=== PATIENT | male | born 1945 | race Caucasian/White ===

== ENCOUNTER → 2018-09-30 11:01 | Outpatient (CLI) | payer MEDICARE, OTHER, SELFPAY ==
--- NOTE | 2018-09-30 | DI.MRI.S_ITS ---
PROCEDURE: MR KNEE RT WO CON INDICATIONS: KNEE REPLACEMENT PLANNING TECHNIQUE: Noncontrast sagittal PD fast spin echo and T2 fast spin echo with fat saturation, sagittal 3-D FLASH with fat saturation; coronal T1 spin echo and PD fast spin echo with fat saturation, and axial PD fast spin echo with fat saturation through the knee. COMPARISON: [facility], MR, KNEE WITHOUT CONTRAST, 07/19/2014, 14:25. FINDINGS: Image quality: Excellent. Menisci: Linear high signal intensity horizontally to reverse the medial meniscal body and posterior horn, demonstrating inferior articular surface extension, indicating horizontal tearing. There is lateral extrusion of the lateral meniscus. There is fragmentation and amorphous high signal intensity within the anterior horn, body, and posterior horn of lateral meniscus, demonstrating superior and inferior articular surface extension, indicating severe degenerative tearing. Cruciate ligaments: The anterior and posterior cruciate ligaments appear intact. Medial structures: The medial collateral ligament appears intact. Visualized portions of the pes anserinus tendons appear normal. No abnormal bursal fluid. Lateral structures: The lateral collateral ligament, long and short heads of the biceps femoris tendon appear intact. The popliteus tendon appears normal. Iliotibial band appears normal. Anterior structures: The quadriceps and patellar tendons appear intact. Patellar alignment is normal. No femoral trochlear dysplasia or ventral trochlear prominence. No edema in the infrapatellar fat pad. Bones and cartilage: No bone marrow contusions or fractures there is moderate tricompartmental periarticular osteophyte formation. Moderate diffuse articular cartilage loss overlies the weightbearing aspects of the medial femoral condyle and medial tibial plateau. Severe articular cartilage loss overlies the mid and posterior weightbearing aspects of the lateral femoral condyle and lateral tibial plateau. Moderate articular cartilage loss overlies the lateral patellar apex. Joint space: There is a small knee joint effusion. There is a small ganglion cyst along the popliteus. Multiple small intra-articular loose bodies are present. No Tejada's cyst. Normal appearing synovial plicae are incidentally noted. IMPRESSION: 1. Medial and lateral meniscal tearing. 2. Tricompartmental osteoarthritis with associated articular cartilage loss. 3. Knee joint effusion and intra-articular loose bodies. Dictated by: Ezequiel Langston M.D. on 09/30/2018 at 13:16 Approved by: Ezequiel Langston M.D. on 09/30/2018 at 13:19
== END ==
PROVIDERS: PCP Family Medicine; Visit Provider Orthopaedic Surgery
DX: Z01.818 Encounter for other preprocedural examination (principal); M23.221 Derangement of posterior horn of medial meniscus due to old tear or injury, right knee; M23.241 Derangement of anterior horn of lateral meniscus due to old tear or injury, right knee; M23.251 Derangement of posterior horn of lateral meniscus due to old tear or injury, right knee; M23.261 Derangement of other lateral meniscus due to old tear or injury, right knee; M17.11 Unilateral primary osteoarthritis, right knee; M25.461 Effusion, right knee; M23.41 Loose body in knee, right knee
CPT/HCPCS: 73721

== ENCOUNTER → 2018-11-22 09:46 | Outpatient (CLI) | payer MEDICARE, OTHER, SELFPAY ==
[2018-11-22 10:31] LABS: Add Manual Diff / Slide Review NO; Basophils Absolute Auto 0 /uL (0-100); Basophils Percent Auto 0.3 % (0-2); Eosinophils Absolute Auto 400 /uL (0-450); Hemoglobin 11.7 g/dL (13.5-17.5); Lymphocytes Absolute Auto 1700 /uL (1100-4500); Lymphocytes Percent Auto 23.4 % (25-40); Mean Corpuscular HGB Conc 32.6 % (30-36); Mean Corpuscular Hemoglobin 28.5 PG (26-34); Mean Corpuscular Volume 87.2 fL (80-100); Monocytes Absolute Auto 600 /uL (0-900); Monocytes Percent Auto 7.8 % (3-14); Neutrophils Absolute Auto 4600 /uL (1500-7000); Neutrophils Percent Auto 63.5 % (50-75); Platelet Count 225 X10^3/uL (150-400); Red Blood Cell Count 4.13 X10^6/uL (4.5-5.9); Red Cell Distribution Width 15.5 % (11.6-14.8); White Blood Cell Count 7.2 X10^3/uL (4.5-11.0)
[2018-11-22 10:58] LABS: Carbon Dioxide 27 mmol/L (22-32); Chloride 103 mmol/L (98-107); HEMOLYSIS < 15 (0-50); Potassium 5.1 mmol/L (3.4-5.1); Sodium 139 mmol/L (137-145)
== END ==
PROVIDERS: PCP Family Medicine; Visit Provider Orthopaedic Surgery
DX: Z01.812 Encounter for preprocedural laboratory examination (principal)
CPT/HCPCS: 36415; 80051; 85025; 93005

== ENCOUNTER 2018-11-30 10:00 | Inpatient (IN) | payer MEDICARE, OTHER, SELFPAY ==
[2018-11-28 12:43] VITALS: BMI 38.1
[2018-11-30] VITALS (15 sets, daily range): BP systolic 90–178; BP diastolic 49–92; PULSE 57–80; RESP 12–20; TEMP 36.3–37; O2SAT 91–100; BMI 38.1
--- NOTE | 2018-11-30 06:00 | DI.RAD.S_ITS ---
PROCEDURE: XR KNEE RT 1TO2V INDICATIONS: post op TECHNIQUE: 2 view(s) of the knee acquired. COMPARISON: [facility], , KNEE 1-2 VIEWS LEFT, 09/12/2014, 13:14. FINDINGS: Bones: Patient is status post knee joint arthroplasty. Hardware components are in expected positions. Visualized bony structures are intact. Soft tissues: Overlying postoperative changes are noted. IMPRESSION: Normal alignment after right total knee arthroplasty. Dictated by: Edward Dye M.D. on 11/30/2018 at 15:17 Approved by: Edward Dye M.D. on 11/30/2018 at 15:17
[2018-11-30] MEDS: ACETAMINOPHEN 325 MG TABLET 975 MG PO ×3 (10:43→20:21)
[2018-11-30] MEDS: CELECOXIB 200 MG CAPSULE PO (10:43)
[2018-11-30] MEDS: PREGABALIN 75 MG CAPSULE PO (10:44)
[2018-11-30] MEDS: LACTATED RINGERS 1,000 ML 42 ML IV (10:57)
--- NOTE | 2018-11-30 11:40 | PM.PREOP ---
Pre-operative Note Interval Note History & Physical reviewed/Exam performed by Physician: Yes Changes to H&P: No
--- NOTE | 2018-11-30 11:40 | PM.OP.1 ---
Operative Date/Time/Diagnoses Date of procedure: 11/30/18 Time of procedure: 13:49 Pre-op diagnosis: Right knee osteoarthritis Post-op diagnosis: same Procedure & Clinicians Procedure: right total knee arthroplasty Same procedure as scheduled: Yes Indications: The patient presents today for [surgery]. The nature of the procedure including the risks and benefits, alternatives, postoperative course and expected outcome were discussed and all questions answered. Consent was obtained. Operative site confirmed and marked. Surgeon: Emigdio Rogers Global Regulatory Affairs Manager: Donte Haynes Anesthesia Type: General, Peripheral nerve block and Local Operative Notes Findings: Severe knee arthritis with valgus alignment. Closure Type: primary Specimen(s): none sent Prosthetic devices, grafts, tissues, transplants, or devices: Adams [employer]ph[employer] Snacks Maxine BCS: 7 femoral component, 7 tibial component, 9 mm BCS polyethylene tray and 35 x 9 mm round patella Applied: implant(s) Estimated Blood Loss (mL): 25 Blood products transfused: none Tourniquet time (min): 20 Procedure in detail: The patient was taken to the operative suite and placed under general anesthesia and given an adductor nerve block. The patient was given prophylactic antibiotics prior to surgery. The patient was also given tranexamic acid, 1 g, just prior to surgery for postoperative hemostasis. The lateral knee was prepped and the joint injected with 20 mL of 1% Lidocaine with epinephrine. The knee was then prepped and draped in usual sterile fashion. The leg was exsanguinated with an Esmarch dressing and the tourniquet raised to 250 torr. A 15 cm anterior incision was made. Next a medial trivector arthrotomy was made. The extensor mechanism was marked to ensure accurate repair. Initial exposing dissection was carried out medially and laterally. The knee was then extended and the patellar thickness was measured and a cut made removing approximately 9 mm of bone with a goal of restoring normal patellar thickness. The patella was then sized and drilled. Some excess lateral bone was excised and the patellofemoral ligament released. The tourniquet was then released. The knee was then flexed and the [employer] femoral guide was placed. The anterior pins were placed and the distal rotation holes drilled. The distal cutting guide was placed and the templated distal femoral cut was made. The templating cutting block was then placed and the anterior, posterior and chamfer cuts made. The [employer] tibial guide was placed and the alignment checked along the axis of the proximal tibial with a thanh. The proximal tibial cut was then made with an oscillating saw. All meniscus and bony debris was then removed. Flexion extension gaps were checked. The knee was initially tight in both flexion and extension but fairly well-balanced. Another 2 mm was cut from the tibia. No specific balancing was required other than routine exposure and removal of osteophytes. The soft tissues were then injected with a combination of 20 mL of half percent Marcaine with epinephrine and 20 mL of Exparel. The trial components were then placed. The knee went into full extension and flexion beyond 120?. There was excellent medial- lateral balance throughout motion. Patellar tracking was excellent. The trial components were removed and size is confirmed for the final implants. The knee was then exsanguinated with an Esmarch dressing and the tourniquet reapplied for cementing. The knee was cleansed with Pulsavac irrigation and dried. The final components were cemented in with high viscosity vacuum mixed bone cement with antibiotics. The knee was held in extension and the patellar clamp until the cement had adequately cured. The knee was then irrigated with dilute Betadine solution. The extensor mechanism was closed with 5 interrupted #1 Vicryl sutures in 90 degrees of flexion. The joint was then injected with a combination of 1 g of tranexamic acid and 20 mL of quarter percent Marcaine with epinephrine. The subcutaneous tissue was closed with 2-0 Vicryl. The skin was closed with nayan and surgical adhesive. An Aquacel dressing and Roberto wrap were then applied. Complications: none Condition: stable Disposition: PACU Plan for aftercare: Critical access hospital protocol for total knee arthroplasty.
[2018-11-30] MEDS: MIDAZOLAM 2 MG/2 ML VIAL IV (12:08)
[2018-11-30] MEDS: CEFAZOLIN 2 GM/100 ML FROZ.PIGGY IV ×2 (12:20→20:21)
--- NOTE | 2018-11-30 12:21 | SUR.PREOP ---
Block start time [1210 . Monitoring initiated and maintained throughout procedure. Oxygen and medications given per anesthesiologist instructions. Patient remained stable throughout procedure, no adverse reactions noted. Block end time [1214 ].
--- NOTE | 2018-11-30 12:54 | SUR.OPER ---
Supine on padded OR bed. Pillow under head, arms secured on padded armboards <90 degree abduction. Safety belt across torso. Non-operative leg secured with tape over blanket over lower leg. Operative leg secured in DeMayo/Jason positioner. Foam padded brace at thigh of operative leg.
[2018-11-30] MEDS: BUPIVACAINE 0.25% W/ EPI 50 ML VIAL 60 ML INJ (13:00)
[2018-11-30] MEDS: BUPIVACAINE LIPOSOME 266 MG/20 ML VIAL INJ (13:01)
[2018-11-30] MEDS: LIDOCAINE 1% W/EPI INJ 20 ML INJ (13:02)
[2018-11-30] MEDS: POVIDONE-IODINE 15 ML, SODIUM CHLORIDE 0.9% 250 ML TOP (13:04)
[2018-11-30] MEDS: TRANEXAMIC ACID 1,000 MG VIAL 1000 MG INJ (13:05)
[2018-11-30] MEDS: LACTATED RINGERS 1,000 ML 125 ML IV (15:53)
--- NOTE | 2018-11-30 16:05 | PT.IPTN ---
Current Diagnoses Obstructive sleep apnea (adult) (pediatric) (11/30/18) Unspecified internal derangement of right knee (11/30/18) Dependence on other enabling machines and devices (11/30/18) Surgery Performed Operation Date: 11/30/18 12:15 Actual Procedures p Total Knee Arthroplasty(Right) - Emigdio Rogers MD Physical Therapy Treatment Note M3 PT-IP Subjective Start: 11/30/18 16:55 Freq: NEEDED Status: Active Protocol: Document 11/30/18 16:05 RCC (Rec: 11/30/18 16:56 RCC [id number]) Subjective Physical Therapy Visit Type Type Patient Refusal Notes Pt refused PT this afternoon, stating I have only been in the room for 30 minutes, I would like to wait until I have had some pain medication. Discussed with pt that pain medication time to take effect would likely be too late to be seen by PT, and discussed importance of early mobility. Pt still declined at this time . Will attempt evaluation again tomorrow
[2018-11-30] MEDS: WARFARIN 5 MG TABLET PO (17:39)
[2018-11-30] MEDS: OXYCODONE IR 5 MG TABLET PO ×2 (17:47→21:29)
[2018-11-30] MEDS: ASPIRIN EC 81 MG TABLET PO (20:22)
[2018-11-30] MEDS: ATORVASTATIN 20 MG TABLET 40 MG PO (20:22)
[2018-11-30] MEDS: CARVEDILOL 12.5 MG TABLET 37.5 MG PO (20:23)
[2018-11-30] MEDS: cloNIDine 0.1 MG TABLET PO (20:25)
[2018-11-30] MEDS: INSULIN NPH/REG 70-30 100 UNIT/ML 3ML VIAL 22 UNIT SUBCUT (20:26)
[2018-12-01] MEDS: OXYCODONE IR 5 MG TABLET PO ×5 (00:34→21:57)
[2018-12-01] MEDS: LACTATED RINGERS 1,000 ML 125 ML IV (00:35)
[2018-12-01] MEDS: CEFAZOLIN 2 GM/100 ML FROZ.PIGGY IV (03:58)
[2018-12-01 05:00] VITALS: BP 133/68; PULSE 69; RESP 16; TEMP 36.4; O2SAT 97
--- NOTE | 2018-12-01 06:27 | PC.NURSE ---
Assumed care of pt 11/30/18 2300. Pt resting in bed during bedside hand-off. Drsg with raul wrap c/d/i. CMS+. Able to wiggle toes, denies numbness. PO oxycodone effective. IVF to PIV. Pt has not been oob yet. Refuses offer to reposition, states I never change positions at night. Using urinal to void. Using I.S. 10x/hr while awake. Bed alarm on. Calling appropriately for needs.
[2018-12-01 06:32] LABS: Hematocrit 32.1 % (41-53); Hemoglobin 10.7 g/dL (13.5-17.5)
[2018-12-01 07:45] VITALS: BP 148/79; PULSE 71; RESP 18; TEMP 36.6; O2SAT 99
[2018-12-01] MEDS: INSULIN NPH/REG 70-30 100 UNIT/ML 3ML VIAL 22 UNIT SUBCUT ×2 (09:10→20:18)
[2018-12-01] MEDS: CARVEDILOL 12.5 MG TABLET 37.5 MG PO ×2 (09:18→20:21)
[2018-12-01] MEDS: SPIRONOLACTONE 25 MG TABLET PO (09:18)
[2018-12-01] MEDS: ACETAMINOPHEN 325 MG TABLET 975 MG PO ×3 (09:18→20:22)
[2018-12-01] MEDS: ASPIRIN EC 81 MG TABLET PO ×2 (09:18→20:22)
[2018-12-01] MEDS: TERAZOSIN 5 MG CAPSULE PO (09:18)
[2018-12-01] MEDS: LOSARTAN 50 MG TABLET 100 MG PO (09:18)
[2018-12-01] MEDS: MELOXICAM 7.5 MG TABLET 15 MG PO (09:18)
[2018-12-01] MEDS: cloNIDine 0.1 MG TABLET PO ×2 (09:19→20:22)
--- NOTE | 2018-12-01 09:47 | PT.IIE ---
Current Diagnoses Obstructive sleep apnea (adult) (pediatric) (11/30/18) Unspecified internal derangement of right knee (11/30/18) Dependence on other enabling machines and devices (11/30/18) Surgery Performed Operation Date: 11/30/18 12:15 Actual Procedures p Total Knee Arthroplasty(Right) - Emigdio Rogers MD Surgical History (Last Reviewed 12/01/18 @ 08:16 by Aurora Salmon, PT) History of arthroplasty of left knee (Acute ~2014) History of carpal tunnel release of both wrists (Acute ~2004) History of hemiarthroplasty of left shoulder (Acute ~2004) Hx of arthroscopy of left knee (Acute ~2008) Hx of cholecystectomy (Acute) Hx of laminectomy (Acute) Hx of shoulder surgery (Acute ~2007) S/P foot surgery, left (Acute) Medical History (Last Reviewed 12/01/18 @ 08:14 by Aurora Salmon, PT) Arthritis (Acute) Asthma (Acute) BPH w urinary obs/LUTS (Acute) Benign tumor of adrenal gland (Acute) Bilateral lower extremity edema (Acute) CKD (chronic kidney disease), stage III (Acute) COPD (chronic obstructive pulmonary disease) (Acute) Chronic pain (Acute) HTN (hypertension) (Acute) Heart murmur (Acute) Hyperlipidemia (Acute) Lymphadenopathy (Acute) Myocardial infarction (Acute) Non-sustained ventricular tachycardia (Acute) ALDAIR on CPAP (Acute) Osteoarthritis (Acute) Paroxysmal A-fib (Acute) Pneumonia (Acute) RBBB (right bundle branch block) (Acute) Renal artery stenosis (Acute) Renal calculus (Acute) Status post placement of implantable loop recorder (Acute ~11/2016) Type 2 diabetes mellitus (Acute) Physical Therapy Inpatient Evaluation/Re-Eval M1 PT/OT-IP Prior Functional Status Start: 11/30/18 16:55 Freq: NEEDED Status: Active Protocol: Document 12/01/18 09:47 DLM (Rec: 12/01/18 11:10 DLM [id number]) Medical Review Prior Functional Status Medical History Reviewed Yes Diet/Fluid Consistency Regular Communication WNL Mobility and Gait Independent, uses cane most of the time, has FWW that he uses as needed, Hard to get FWW down his halls and through some doorways Activities of Daily Living and IADL's Independent Prior Functional Level (Other details) he went to SNF rehab at [facility] after left TKA Social History Household Members significant other Living Arrangements House Number of Floors (Floors) One Floor Number of Stairs To Enter/Railing? 1, no rail, can use FWW Home Environment High Toilet Home Equipment Front Wheel Walker Straight Cane Shower Seat with Backrest Employment Status Retired Additional Social History Comment lives with his Ex- M2 PT-IP Current Condition Start: 11/30/18 16:55 Freq: NEEDED Status: Active Protocol: Document 12/01/18 09:47 DLM (Rec: 12/01/18 11:10 DL [id number]) Physical Therapy Current Condition Current Condition Evaluation Date 12/01/18 Treatment Diagnosis right TKA, impaired gait Onset Date 11/30/18 Weight Bearing Status Weight Bearing Status Weight Bear as Tolerated M3 PT-IP Subjective Start: 11/30/18 16:55 Freq: NEEDED Status: Active Protocol: Document 12/01/18 09:47 DLM (Rec: 12/01/18 11:10 DL [id number]) Subjective Physical Therapy Visit Type Type Initial Evaluation Visit Start Time 09:15 Visit Stop Time 09:47 Total Visit Minutes 32 Number of MILK WAGON DRIVER Visits 0 Physical Therapy Visit Comments Patient Comments he is not sure if he will be ready to go home at discharge or if he will need SNF rehab before going home Patient Goals get stronger Therapy Pain Assessment Pain When Pain Assessed During Mobility Pain Present Pain Present Pain Reported Location Right Knee Intensity 5 Scale Used Numeric (1 - 10) Description Aching Pain Behaviors Guarding Pain Management Techniques Apply Cold Elevation M4 PT-IP Mobility and Gait Start: 11/30/18 16:55 Freq: NEEDED Status: Active Protocol: Document 12/01/18 09:47 DLM (Rec: 12/01/18 11:10 DL [id number]) PT-Bed Mobility Assessment Supine to Sit Supine to Sit Minimal Assistance Scooting Scooting to Edge of Bed Independent PT-Transfer Assessment Sit to and From Stand Sit to and from Stand Minimal Assistance Use of Upper Extremities Equipment Transfer Assistive Device Gait Belt Front Wheeled Walker Transfers Transfer Destination Chair Transfer Technique Stand Step Pivot Transfer Ability Level of Assist Contact Guard Assistance Use of Upper Extremities Gait Assessment Gait Gait Assistance Required: Contact Guard Assist Distance (Feet) 2 Assistive Devices Assistive Device Gait Belt Front Wheeled Walker Gait Deviations General Gait Pattern Antalgic Factors Limiting Gait Function Factors Limiting Gait Function Decreased Activity Tolerance Decreased Strength Limited Range of Motion Pain PT-Balance Assessment Sitting Balance and Reactions Static Sitting Balance Ability Normal Dynamic Sitting Balance Ability Normal Standing Balance and Reactions Static Standing Balance Ability Fair Dynamic Standing Balance Ability Fair Device Used FWW M5 PT-IP Objective Assessments Start: 11/30/18 16:55 Freq: NEEDED Status: Active Protocol: Document 12/01/18 09:47 DLM (Rec: 12/01/18 11:10 DLM [id number]) Orientation Orientation/Cognition Level of Alertness Alert Orientation Name Age Birthday Month Date Year Day of Week Place Situation Language Function Ability No Deficits Noted Safety Awareness Understands Safety Issues Memory Description No Deficits Noted Gross Range of Motion Upper Extremity ROM Assessment Within Functional Limits Lower Extremity ROM Assessment Right Impaired Impairments knee ROM 25-80 degrees Strength Upper Extremity Strength Assessment Within Functional Limits Lower Extremity Strength Assessment Right Impaired Hip needs assist to lift LE off bed Knee knee ext 2+/5 Ankle DF 4/5 Coordination Assessment Gross Coordination Gross Coordination WNL Sensation Assessment Comments Sensation Comments no numbness reported, edema present in knee and distal LE Muscle Tone Muscle Tone WNL Yes M6 PT-IP Treatment Start: 11/30/18 16:55 Freq: NEEDED Status: Active Protocol: Document 12/01/18 09:47 DLM (Rec: 12/01/18 11:10 DLM [id number]) Physical Therapy Treatment Exercises Exercises Ankle Pumps Seated Knee Flexion/Extension Education Education Provided Weight Bearing Status Post-Op Packet Safety Equipment Issued Equipment Type and Company pt has his FWW from home in his room M7 PT-IP Assessment and Plan Start: 11/30/18 16:55 Freq: NEEDED Status: Active Protocol: Document 12/01/18 09:47 DLM (Rec: 12/01/18 11:10 DL [id number]) PT Summary Assessment and Plan Potential Rehabilitation Potential Good Status of Condition at Evaluation Evolving Summary Impairments Pain ROM Strength Balance Bed Mobility Transfers Gait Activity Tolerance Assessment Summary Patient alert and tolerated therapy well this visit. He c/ o pain that limits his activity tolerance today. He demonstrates safe use of the FWW. Pt up to recliner this visit. Pt reports living in a home with narrow hallways and doorways that complicate use of the fWW at home. He attended SNF rehab after his left TKA. If he continues to progress well he will be able to discharge home. If he progresses slowly he could benefit from SNF rehab before returning home. Goals Bed Mobility Goal Independent Transfer Goal Independent Front Wheeled Walker Gait Goal Independent Front Wheel Walker Gait Distance 100 feet Other Goals Up and down one step with FWW and SBA. Days to Meet Goals 3 Frequency of Treatment Frequency Of Treatment Twice a Day Treatment Plan Physical Therapy Treatment Plan Bed Mobility Training Transfer Training Gait Training Therapeutic Exercise Balance Retraining Post Op Education Discharge Planning Hot or Cold Pack Recommendations To Nursing Amount of Assist Needed 1 Person Assist Discharge Recommendations PT Discharge Recommendations Home with Assistance SNF Rehab Other Discharge Recommendations continue to assess for discharge home with Ex- to assist vs SNF rehab
[2018-12-01] MEDS: OXYCODONE IR 10 MG TABLET PO (09:59)
[2018-12-01 12:03] VITALS: BP 134/61; PULSE 67; RESP 20; TEMP 36.7; O2SAT 95
--- NOTE | 2018-12-01 12:22 | PM.PNPO.1 ---
Subjective Date Patient Seen: 12/01/18 Time Patient Seen: 12:22 Interval history: Patient is a 73 year old male who is POD#1 s/p right total knee arthroplasty. He had some difficulty with pain control overnight and states his pain levels was peaking at a 7/10. He has been slow to advance his activity and was only able to walk from bed to chair with physical therapy and has been up to the bathroom minimally. He denies any issues with urination, nausea, vomiting, chest pain, shortness of breath or calf pain. Exam Vital Signs (past 8 hours): - 12/01/18 05:00 12/01/18 07:45 12/01/18 12:03 Temperature 97.6 F 97.8 F 98.0 F Pulse Rate 69 71 67 Respiratory Rate 16 18 20 Blood Pressure 133/68 148/79 H 134/61 Pulse Oximetry 97 99 95 Oxygen Delivery Method Room Air Narrative Exam Narrative: Pleasant 73 yo M resting comfortably in bed in no apparent distress. Extrem Other: Dressing in place over right knee is CDI. Minimal swelling to the knee with no warmth or erythema. 2+ DP pulse. Intact sensation throughout distal lower extremity. Freely dorsiflexs and plantar flexes the foot and toes. Objective Labs Result Diagrams: 12/01/18 06:03 Labs: Laboratory Results - last 24 hr 12/01/18 06:03 Hgb 10.7 L Hct 32.1 L Assessment & Plan Post-op Postoperative Procedures Operation Date: 11/30/18 12:15 Actual Procedures Side Surgeon p Total Knee Arthroplasty Right Emigdio Rogers MD Postoperative day: 1 Postoperative plan narrative: 73 yo M with past medical history including diabetes, coronary artery disease, history of multiple myocardial infarctions, right bundle branch block, obesity and sleep apnea who is slowly progressing his activity. Due to his significant past medical history and his current progress with physical therapy I believe it is necessary for him to have an inpatient stay. Continue his current pain regimen with the addition of Oxycodone 10mg for severe pain. Continue to advance activity with physical therapy as able. Time Spent With Patient less than 15 minutes Quality VTE Deep Vein Thrombosis/Pulmonary Embolism Present on Admission: No
[2018-12-01 15:35] VITALS: BP 116/52; PULSE 68; RESP 16; TEMP 37; O2SAT 93
--- NOTE | 2018-12-01 15:50 | CM.DANOTE ---
Discharge Planning/Care Management DCP: assessment: Case received, EMR reviewed and met with pt. Introduced self and role. Pt is a 73 year old male who admitted yesterday for a planned R TKA. Payer: Medicare and [facility] Surgeon: Dr. Rogers. INPT admission status: confirmed by UR CLAUDINE Elaine PT eval was done today. Pt confirms that he did d/c to [facility] for rehab after L TKA: 5 years ago. He is hopeful that he can go home this time but will consider snf if must. He plans for assist from his ex- Candida, with whom he lives and his 43 year old son Preston who will be living at the house with them for a month. He notes Preston is big and strong. P: will check in again tomorrow after pt has more therapy sessions and follow: home with assist vs snf stay: to be determined. CM Discharge Assessment Start: 12/01/18 15:49 Freq: Status: Active Protocol: Document 12/01/18 15:49 ITV (Rec: 12/01/18 15:50 ITV [email or web address]) Discharge Planning Assessment Advance Directives? No: Declines further information Advance Directives on File No History Provided By Patient Medical Record Prior Living Arrangements House Household Members significant other Comment ex Candida Is patient alert and oriented? Yes Whiteboard Updated in Patient Room with Yes name and ext. # of Feeder Associate Review Status In Process Next Review Type Continued Stay Review Pre-Anesthesia Assessment Start: 11/28/18 12:43 Freq: Status: Complete Protocol: Document 11/28/18 12:43 CAB (Rec: 11/28/18 13:34 CAB [id number]) Pre-Anesthesia Assessment Patient Information Reviewed Via Phone Assessment Assessment Completed With Patient Diagnostic Results BMP/CMP CBC EKG Primary Care Provider Guillermo Ramirez Medical Clearance Received Yes Seen Specialist in Last 12 Months Yes Specialist Seen Automotive Fleet Supervisor Orthopedist Comment PCP clearance scanned to record Primary Language [place] Donkey Ride Operator Required No Height 185.42 cm Weight 131.088 kg Body Mass Index (BMI) 38.1 Hearing Ability Normal Visual Assist Glasses Dentition Type Teeth, Natural Present Barriers to Learning None Other Aids No Hx Anesthesia Reactions Yes: Post-op Nausea/Vomiting Hx Family Anesthesia Reaction No Hx Malignant Hyperthermia No Hx Blood Transfusions Yes: 1971 Hx Blood Transfusion Reaction No Anesthesia Review Requested No 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 No Does patient have WEBER/SOB Yes: Hx COPD, Asthma Hx Sleep Apnea Yes CPAP/BIPAP use prescribed and used routinely Will Bring CPAP/BIPAP DOS Yes Currently Taking a Beta Ashly Yes Can You Climb a Flight of Stairs Without No: Hx COPD, Asthma SOB Hx Chest Pain Yes: r/t myocardial infarction , none since Hx SOB Hx COPD, Asthma Hx Syncope or Dizziness Yes: Syncope history, resolved w/medication changes Anti-Coagulant Therapy Yes: warfarin. Pt advised to hold 5-7 days prior per PCP Has a Automotive Fleet Supervisor Yes: Last visit 2017, has frequent loop recorder visits Cardiac Testing No: Last ECHO 2016 Hx Pacemaker/ICD No Pacemaker Rep Required? No Cardiac Clearance Received Yes Diet Type At Home Regular Diabetic dysphagia No Urinary Catheter Present No Hx Urinary Self Catheterization No Diabetes Yes: Pt checks blood sugars 2- 3 x/day HgbA1C 6.2 Date 09/29/18 Hx Drug Resistant Organism No Presence of External or Internal Medical Yes: Left knee, left shoulder Devices hardware, loop recorder (left chest) Have you traveled outside the [facility] States in the last 30 days? Marital Status Lives With significant other Prior Living Arrangements House Number of Floors (Floors) One Floor Support System Child/Children Significant Other Does the Patient Have Assistance After Yes Surgery Patient Discharge Plan Description Return Home Comment Pt not advised on length of stay per surgeon's office Feels Safe in Current Environment Yes Been Physically Hurt or Threatened By a No Person in Current Environment Do you have thoughts of harming yourself None or others? Are you currently considering suicide? No Do you have a plan to hurt yourself or No Plan others? Do You Have Any Spiritual Beliefs That No May Affect Your HC Choices? Do You Have Any Cultural Practices That No May Affect Your HC Choices? Spiritual Referral None Who Can We Speak to About Patient's Care Family, friends Identifying Code for Release of Patient Declines to issue Information Health Care Proxy/Next of Kin Candida Tate (S.O.) Health Care Proxy Emergency Contact Name Candida Bebeto (S.O.) Emergency Contact Advance Directives? No: Declines further information PAC Instructions Bring CPAP/BIPAP Durable medical equipment Medications to take/avoid Nasal antibiotic NPO Post-op transportation Pre-surgical wash Sturdy shoes/comfortable clothes Do not bring valuables and remove jewelry Comment Surg # given to pt to call if questions dos w/blood sugar concerns
--- NOTE | 2018-12-01 16:01 | PT.IPTN ---
Current Diagnoses Obstructive sleep apnea (adult) (pediatric) (11/30/18) Unspecified internal derangement of right knee (11/30/18) Dependence on other enabling machines and devices (11/30/18) Surgery Performed Operation Date: 11/30/18 12:15 Actual Procedures p Total Knee Arthroplasty(Right) - Emigdio Rogers MD Physical Therapy Treatment Note M2 PT-IP Current Condition Start: 11/30/18 16:55 Freq: NEEDED Status: Active Protocol: Document 12/01/18 09:47 DLM (Rec: 12/01/18 11:10 DLM [id number]) Physical Therapy Current Condition Current Condition Evaluation Date 12/01/18 Treatment Diagnosis right TKA, impaired gait Onset Date 11/30/18 Weight Bearing Status Weight Bearing Status Weight Bear as Tolerated M3 PT-IP Subjective Start: 11/30/18 16:55 Freq: NEEDED Status: Active Protocol: Document 12/01/18 15:52 SA (Rec: 12/01/18 16:01 SA [email or web address]) Subjective Physical Therapy Visit Type Type Treatment Note Visit Start Time 14:42 Visit Stop Time 15:05 Total Visit Minutes 23 Number of SHEET METAL MECHANIC Visits 1 Physical Therapy Visit Comments Patient Comments Pt reports he feels like he will be able to d/c home. Therapy Pain Assessment Pain When Pain Assessed During Mobility Pain Present Pain Present Pain Reported Location Right Knee Intensity 3 Scale Used Numeric (1 - 10) Pain Management Techniques Apply Cold Elevation M4 PT-IP Mobility and Gait Start: 11/30/18 16:55 Freq: NEEDED Status: Active Protocol: Document 12/01/18 15:52 SA (Rec: 12/01/18 16:01 SA [email or web address]) PT-Bed Mobility Assessment Supine to Sit Supine to Sit Standby Assistance Sit to Supine Sit to Supine Standby Assistance Scooting Scooting to Edge of Bed Independent Scooting Up and Down in Bed Independent PT-Transfer Assessment Sit to and From Stand Sit to and from Stand Contact Guard Assistance Use of Upper Extremities Equipment Transfer Assistive Device Gait Belt Front Wheeled Walker Orthotic/Prosthetic Devices or Brace: No Transfers Transfer Destination Bed Transfer Technique Stand Step Pivot Transfer Ability Level of Assist Contact Guard Assistance Use of Upper Extremities Comments Mobility Comments Pt able to clear RLE over EOB with SUP<>Sit transitions with SBA and increased time. Bed mobility with IND-SBA and CGA with transfers. Gait Assessment Gait Gait Assistance Required: Contact Guard Assist Distance (Feet) 60 Able to Maintain Weight Bearing Status Yes During Gait Assistive Devices Assistive Device Gait Belt Front Wheeled Walker Gait Deviations General Gait Pattern Antalgic Decreased Stride Length Decreased Feet Clearance Factors Limiting Gait Function Factors Limiting Gait Function Decreased Activity Tolerance Decreased Strength Limited Range of Motion Pain Comments Gait Comments Pt with gradual improvement of WBing tolerance through RLE and uses FWW safely. M5 PT-IP Objective Assessments Start: 11/30/18 16:55 Freq: NEEDED Status: Active Protocol: Document 12/01/18 09:47 DLM (Rec: 12/01/18 11:10 DLM [id number]) Orientation Orientation/Cognition Level of Alertness Alert Orientation Name Age Birthday Month Date Year Day of Week Place Situation Language Function Ability No Deficits Noted Safety Awareness Understands Safety Issues Memory Description No Deficits Noted Gross Range of Motion Upper Extremity ROM Assessment Within Functional Limits Lower Extremity ROM Assessment Right Impaired Impairments knee ROM 25-80 degrees Strength Upper Extremity Strength Assessment Within Functional Limits Lower Extremity Strength Assessment Right Impaired Hip needs assist to lift LE off bed Knee knee ext 2+/5 Ankle DF 4/5 Coordination Assessment Gross Coordination Gross Coordination WNL Sensation Assessment Comments Sensation Comments no numbness reported, edema present in knee and distal LE Muscle Tone Muscle Tone WNL Yes M6 PT-IP Treatment Start: 11/30/18 16:55 Freq: NEEDED Status: Active Protocol: Document 12/01/18 15:52 SA (Rec: 12/01/18 16:01 [email or web address]) Physical Therapy Treatment Exercises Exercises Ankle Pumps Gluteal Sets Quad Sets Heel Slides Education Education Provided Weight Bearing Status Post-Op Packet Safety Equipment Issued Equipment Type and Company pt has his FWW from home in his room M7 PT-IP Assessment and Plan Start: 11/30/18 16:55 Freq: NEEDED Status: Active Protocol: Document 12/01/18 15:52 SA (Rec: 12/01/18 16:01 [email or web address]) PT Summary Assessment and Plan Potential Rehabilitation Potential Good Status of Condition at Evaluation Evolving Summary Impairments Pain ROM Strength Balance Bed Mobility Transfers Gait Activity Tolerance Assessment Summary Pt pleseant and agreeable to work, increased gait distance and decreasing assist with bed mobility. Probable d/c home without SNF stay. Frequency of Treatment Frequency Of Treatment Twice a Day Treatment Plan Physical Therapy Treatment Plan Bed Mobility Training Transfer Training Gait Training Therapeutic Exercise Balance Retraining Post Op Education Discharge Planning Hot or Cold Pack Recommendations To Nursing Amount of Assist Needed 1 Person Assist Discharge Recommendations PT Discharge Recommendations Home with Assistance SNF Rehab
[2018-12-01] MEDS: WARFARIN 5 MG TABLET PO (17:23)
[2018-12-01] MEDS: ATORVASTATIN 20 MG TABLET 40 MG PO (20:21)
[2018-12-01 20:47] VITALS: BP 130/56; PULSE 76; RESP 18; TEMP 37.3; O2SAT 97
[2018-12-01 23:00] VITALS: BP 116/54; PULSE 68; RESP 16; TEMP 36.6; O2SAT 100
[2018-12-02] MEDS: OXYCODONE IR 5 MG TABLET PO ×4 (02:39→12:58)
[2018-12-02 05:52] VITALS: BP 114/53; PULSE 66; RESP 16; TEMP 36.8; O2SAT 99
[2018-12-02 07:45] VITALS: BP 141/71; PULSE 69; RESP 16; TEMP 36.8; O2SAT 95
[2018-12-02] MEDS: MELOXICAM 7.5 MG TABLET 15 MG PO (09:24)
[2018-12-02] MEDS: TERAZOSIN 5 MG CAPSULE PO (09:25)
[2018-12-02] MEDS: SPIRONOLACTONE 25 MG TABLET PO (09:25)
[2018-12-02] MEDS: cloNIDine 0.1 MG TABLET PO (09:25)
[2018-12-02] MEDS: ASPIRIN EC 81 MG TABLET PO (09:25)
[2018-12-02] MEDS: LOSARTAN 50 MG TABLET 100 MG PO (09:25)
[2018-12-02] MEDS: CARVEDILOL 12.5 MG TABLET 37.5 MG PO (09:25)
[2018-12-02] MEDS: ACETAMINOPHEN 325 MG TABLET 975 MG PO (09:26)
--- NOTE | 2018-12-02 10:55 | PT.IPTN ---
Current Diagnoses Obstructive sleep apnea (adult) (pediatric) (11/30/18) Unspecified internal derangement of right knee (11/30/18) Dependence on other enabling machines and devices (11/30/18) Surgery Performed Operation Date: 11/30/18 12:15 Actual Procedures p Total Knee Arthroplasty(Right) - Emigdio Rogers MD Physical Therapy Treatment Note M2 PT-IP Current Condition Start: 11/30/18 16:55 Freq: NEEDED Status: Active Protocol: Document 12/01/18 09:47 DLM (Rec: 12/01/18 11:10 DLM [id number]) Physical Therapy Current Condition Current Condition Evaluation Date 12/01/18 Treatment Diagnosis right TKA, impaired gait Onset Date 11/30/18 Weight Bearing Status Weight Bearing Status Weight Bear as Tolerated M3 PT-IP Subjective Start: 11/30/18 16:55 Freq: NEEDED Status: Active Protocol: Document 12/02/18 10:55 GGD (Rec: 12/02/18 12:09 GGD [email or web address]) Subjective Physical Therapy Visit Type Type Treatment Note Visit Start Time 10:30 Visit Stop Time 10:55 Total Visit Minutes 25 Number of SESSIONS CLERK Visits 2 Physical Therapy Visit Comments Patient Comments Pt willing to work with therapy. Therapy Pain Assessment Pain When Pain Assessed During Mobility Pain Present Pain Present Pain Reported Location Right Knee Intensity 4 Scale Used Numeric (1 - 10) Pain Management Techniques Re-positioning Timing of Activity with Medications M4 PT-IP Mobility and Gait Start: 11/30/18 16:55 Freq: NEEDED Status: Active Protocol: Document 12/02/18 10:55 GGD (Rec: 12/02/18 12:09 GGD [email or web address]) PT-Bed Mobility Assessment Supine to Sit Supine to Sit Standby Assistance Scooting Scooting to Edge of Bed Independent Scooting Up and Down in Bed Independent PT-Transfer Assessment Sit to and From Stand Sit to and from Stand Contact Guard Assistance Use of Upper Extremities Equipment Transfer Assistive Device Gait Belt Front Wheeled Walker Transfers Transfer Destination Chair Transfer Ability Level of Assist Contact Guard Assistance Use of Upper Extremities Gait Assessment Gait Gait Assistance Required: Contact Guard Assist Distance (Feet) 70 Able to Maintain Weight Bearing Status Yes During Gait Assistive Devices Assistive Device Gait Belt Front Wheeled Walker Gait Deviations General Gait Pattern Antalgic Decreased Stride Length Decreased Feet Clearance Factors Limiting Gait Function Factors Limiting Gait Function Decreased Activity Tolerance Decreased Strength Limited Range of Motion Pain Comments Gait Comments Pt slow moving, but SBA to CGA with mobility. M5 PT-IP Objective Assessments Start: 11/30/18 16:55 Freq: NEEDED Status: Active Protocol: Document 12/01/18 09:47 DLM (Rec: 12/01/18 11:10 DLM [id number]) Orientation Orientation/Cognition Level of Alertness Alert Orientation Name Age Birthday Month Date Year Day of Week Place Situation Language Function Ability No Deficits Noted Safety Awareness Understands Safety Issues Memory Description No Deficits Noted Gross Range of Motion Upper Extremity ROM Assessment Within Functional Limits Lower Extremity ROM Assessment Right Impaired Impairments knee ROM 25-80 degrees Strength Upper Extremity Strength Assessment Within Functional Limits Lower Extremity Strength Assessment Right Impaired Hip needs assist to lift LE off bed Knee knee ext 2+/5 Ankle DF 4/5 Coordination Assessment Gross Coordination Gross Coordination WNL Sensation Assessment Comments Sensation Comments no numbness reported, edema present in knee and distal LE Muscle Tone Muscle Tone WNL Yes M6 PT-IP Treatment Start: 11/30/18 16:55 Freq: NEEDED Status: Active Protocol: Document 12/02/18 10:55 GGD (Rec: 12/02/18 12:09 GGD [email or web address]) Physical Therapy Treatment Exercises Exercises Ankle Pumps Gluteal Sets Quad Sets Heel Slides Seated Knee Flexion/Extension Education Education Provided Post-Op Packet Safety M7 PT-IP Assessment and Plan Start: 11/30/18 16:55 Freq: NEEDED Status: Active Protocol: Document 12/02/18 10:55 GGD (Rec: 12/02/18 12:09 GGD [email or web address]) PT Summary Assessment and Plan Summary Assessment Summary Pt is improving with mobility slowly. He had improved tolerance to gait and weight bearing. He is safe for D/C home when medically stable. Frequency of Treatment Frequency Of Treatment Twice a Day Treatment Plan Physical Therapy Treatment Plan Bed Mobility Training Transfer Training Gait Training Therapeutic Exercise Balance Retraining Post Op Education Discharge Planning Hot or Cold Pack Recommendations To Nursing Amount of Assist Needed 1 Person Assist Discharge Recommendations PT Discharge Recommendations Home with Assistance Outpatient PT
[2018-12-02 11:31] VITALS: BP 129/46; PULSE 71; RESP 16; TEMP 36.6; O2SAT 93
--- NOTE | 2018-12-02 14:07 | PM.DS.1 ---
History of Present Illness Date Patient Seen: 12/02/18 Time Patient Seen: 07:40 Chief complaint: 51201 RIGHT TOTAL KNEE ARTHROPLASTY Narrative: Patient is a 73 year old male with significant past medical history who is POD#2 s/p right total knee arthroplasty. Today he states his pain has been well controlled with his current regimen of oxycodone 5mg. He was up and out of bed with PT and was able to walk the halls and has been up to the chair and bathroom today. He denies any chest pain, shortness of breath, nausea, vomiting or calf pain. Discharge Providers Date of admission: 11/30/18 10:00 Discharge Date: 12/02/18 Primary care physician: Guillermo Ramirez MD Consults: 11/30/18 15:12 Consult to Discharge Planning Routine Comment: Consult to Physical Therapy Evaluate & Treat Comment: Physician Instructions: postop TKA protocol Consult to Respiratory Therapy Evaluate & Treat Comment: Physician Instructions: Evaluate and treat Discharge provider: Agustina Osorio PA-C Summary Discharge Diagnosis: s/p right total knee arthroplasty Hospital Course: Findings: Severe knee arthritis with valgus alignment. Closure Type: primary Specimen(s): none sent Prosthetic devices, grafts, tissues, transplants, or devices: [employer] Maxine BCS: 7 femoral component, 7 tibial component, 9 mm BCS polyethylene tray and 35 x 9 mm round patella Applied: implant(s) Estimated Blood Loss (mL): 25 Blood products transfused: none Tourniquet time (min): 20 Procedure in detail: The patient was taken to the operative suite and placed under general anesthesia and given an adductor nerve block. The patient was given prophylactic antibiotics prior to surgery. The patient was also given tranexamic acid, 1 g, just prior to surgery for postoperative hemostasis. The lateral knee was prepped and the joint injected with 20 mL of 1% Lidocaine with epinephrine. The knee was then prepped and draped in usual sterile fashion. The leg was exsanguinated with an Esmarch dressing and the tourniquet raised to 250 torr. A 15 cm anterior incision was made. Next a medial trivector arthrotomy was made. The extensor mechanism was marked to ensure accurate repair. Initial exposing dissection was carried out medially and laterally. The knee was then extended and the patellar thickness was measured and a cut made removing approximately 9 mm of bone with a goal of restoring normal patellar thickness. The patella was then sized and drilled. Some excess lateral bone was excised and the patellofemoral ligament released. The tourniquet was then released. The knee was then flexed and the [employer] femoral guide was placed. The anterior pins were placed and the distal rotation holes drilled. The distal cutting guide was placed and the templated distal femoral cut was made. The templating cutting block was then placed and the anterior, posterior and chamfer cuts made. The [employer] tibial guide was placed and the alignment checked along the axis of the proximal tibial with a thanh. The proximal tibial cut was then made with an oscillating saw. All meniscus and bony debris was then removed. Flexion extension gaps were checked. The knee was initially tight in both flexion and extension but fairly well-balanced. Another 2 mm was cut from the tibia. No specific balancing was required other than routine exposure and removal of osteophytes. The soft tissues were then injected with a combination of 20 mL of half percent Marcaine with epinephrine and 20 mL of Exparel. The trial components were then placed. The knee went into full extension and flexion beyond 120?. There was excellent medial- lateral balance throughout motion. Patellar tracking was excellent. The trial components were removed and size is confirmed for the final implants. The knee was then exsanguinated with an Esmarch dressing and the tourniquet reapplied for cementing. The knee was cleansed with Pulsavac irrigation and dried. The final components were cemented in with high viscosity vacuum mixed bone cement with antibiotics. The knee was held in extension and the patellar clamp until the cement had adequately cured. The knee was then irrigated with dilute Betadine solution. The extensor mechanism was closed with 5 interrupted #1 Vicryl sutures in 90 degrees of flexion. The joint was then injected with a combination of 1 g of tranexamic acid and 20 mL of quarter percent Marcaine with epinephrine. The subcutaneous tissue was closed with 2-0 Vicryl. The skin was closed with nayan and surgical adhesive. An Aquacel dressing and Roberto wrap were then applied. Complications: none Condition: stable Disposition: PACU Plan for aftercare: [facility] protocol for total knee arthroplasty. Since returning to the floor he his pain has been reasonably well controlled. He was initially slow to mobilize but has improved on his second day post operatively. He has several people at home to assist in his post operative care. All of his prescriptions were given prior to surgery and he has them at home. Status at Discharge Cognitive/behavioral status at discharge: oriented Functional status at discharge: uses cane/walker Overall status at discharge: patient is progressing back to baseline Time Spent with Patient Less than 30 minutes Exam Vital Signs (past 8 hours): - 12/02/18 07:45 12/02/18 11:31 Temperature 98.2 F 98 F Pulse Rate 69 71 Respiratory Rate 16 16 Blood Pressure 141/71 H 129/46 L Pulse Oximetry 95 93 Oxygen Delivery Method Room Air Oxygen Flow Rate 0 Narrative Exam Narrative: Pleasant 73 year old male resting comfortably in bed in no apparent distress. Extrem Other: Aquacel dressing in place over right knee is clean, dry, and intact. No excessive swelling, warmth or erythema. Sensation intact in right distal extremity. 2+ DP pulse. Objective Labs Result Diagrams: 12/01/18 06:03 Discharge Plan Discharge Plan Patient Disposition: Home Discharge comment: Home after cleared by PT Discharge Med Rec/Prescriptions Prescriptions: New acetaminophen 325 mg Tablet 975 mg PO TID Qty: 0 RF: 0 oxycodone 5 mg Tablet 5 mg PO Q3HR PRN (Reason: Pain, Moderate (4-6)) Qty: 0 RF: 0 Continued terazosin 5 mg Capsule 5 mg PO DAILY RF: 0 atorvastatin 40 mg Tablet 40 mg PO QPM RF: 0 carvedilol 25 mg Tablet 37.5 mg PO BID RF: 0 Novolin 70/30 U-100 Insulin 100 unit/mL (70-30) Suspension 22 unit SUBCUT BID RF: 0 spironolactone 25 mg Tablet 25 mg PO DAILY RF: 0 clonidine HCl 0.2 mg Tablet 0.1 mg PO BID RF: 0 warfarin 5 mg Tablet 5 mg PO QPM RF: 0 losartan 100 mg Tablet 100 mg PO DAILY RF: 0 multivitamin Capsule 1 cap PO DAILY RF: 0 cholecalciferol (vitamin D3) [Vitamin D3] 1,000 unit Tablet 1,000 unit PO BID RF: 0 magnesium oxide 400 mg Capsule 400 mg PO BID RF: 0 Discontinued aspirin [Aspir-81] 81 mg Tablet,Delayed Release (Dr/Ec) 81 mg PO DAILY RF: 0 Follow up/Referrals: Emigdio Rogers MD [Physician] - (Follow up with the office as listed in your [facility] book.) Provider Discharge Instructions Diet: Carb-consistent/Diabetic Activity: Weightbearing as tolerated, use walker until cleared by physical therapy. Elevate operative leg regularly to reduce swelling. Cold/Heat Therapy: Apply ice to affected area for 20 minutes at a time at least hourly while awake. Other treatments: Please refer to your [facility] book for all other questions and instructions. Skin/Wound/Dressing Care Report to your healthcare provider any signs of infection, such as:: chills, fever, night sweats, increased pain, unusual drainage and unusual redness Dressing: Keep dressing clean, dry, and intact. May shower with it in place but no soaking. Visit Report/Discharge Packet Instructions: DI for Knee Replacement, Oxycodone Stand Alone Forms: Surgery Discharge Visit Report Forms: Stroke Signs & Symptoms Discharge Data Primary Care Provider: Guillermo Ramirez Attending Provider: Emigdio Rogers Admit Date/Time: 11/30/18 10:00 Quality VTE Deep Vein Thrombosis/Pulmonary Embolism Present on Admission: No
--- NOTE | 2018-12-02 14:11 | P.DS_ITS ---
History of Present Illness Date Patient Seen: 12/02/18 Time Patient Seen: 07:40 Chief complaint: 60715 RIGHT TOTAL KNEE ARTHROPLASTY Narrative: Patient is a 73 year old male with significant past medical history who is POD#2 s/p right total knee arthroplasty. Today he states his pain has be en well controlled with his current regimen of oxycodone 5mg. He was up and out of bed with PT and was able to walk the halls and has been up to the chair and bathroom today. He denies any chest pain, shortness of breath, nausea, vomiting or calf pain. Discharge Providers Date of admission: 11/30/18 10:00 Discharge Date: 12/02/18 Primary care physician: Guillermo Ramirez MD Consults: 11/30/18 15:12 Consult to Discharge Planning Routine Comment: Consult to Physical Therapy Evaluate & Treat Comment: Physician Instructions: postop TKA protocol Consult to Respiratory Therapy Evaluate & Treat Comment: Physician Instructions: Evaluate and treat Discharge provider: Agustina Osorio PA-C Summary Discharge Diagnosis: s/p right total knee arthroplasty Hospital Course: Findings: Severe knee arthritis with valgus alignment. Closure Type: primary Specimen(s): none sent Prosthetic devices, grafts, tissues, transplants, or devices: [employer]ine BCS: 7 femoral component, 7 tibial component, 9 mm BCS polyethylene tray and 35 x 9 mm round patella Applied: implant(s) Estimated Blood Loss (mL): 25 Blood products transfused: none Tourniquet time (min): 20 Procedure in detail: The patient was taken to the operative suite and placed under general anesthesia and given an adductor nerve block. The patient was given prophylactic antibiotics prior to surgery. The patient was also given tr anexamic acid, 1 g, just prior to surgery for postoperative hemostasis. The lateral knee was prepped and the joint injected with 20 mL of 1% Lidocaine with epinephrine. The knee was then prepped and draped in usual sterile fashion. The leg was exsanguinated with an Esmarch dressing and the tourniquet raised to 250 torr. A 15 cm anterior incision was made. Next a medial trivector arthrotomy was made. The extensor mechanism was marked to ensure accurate repair. Initial exposing dissection was carried out medially and laterally. The knee was then extended and the patellar thickness was measured and a cut made removing approximately 9 mm of bone with a goal of restoring normal patellar thickness. The patella was then sized and drilled. Some excess lateral bone was excised and the pat ellofemoral ligament released. The tourniquet was then released. The knee was then flexed and the [employer] femoral guide was placed. The anterior pins were placed and the distal rotation holes drilled. The distal cutting guide was placed and the templated distal femoral cut was ma de. The templating cutting block was then placed and the anterior, posterior and chamfer cuts made. The [employer] tibial guide was placed and the alignment checked along the axis of the proximal tibial with a thanh. The proximal tibial cut was then made with an oscillating saw. All meniscus and bony debris was then removed. Flexion extension gaps were checked. The knee was initially tight in both flexion and extension but fairly well-balanced. Another 2 mm was cut from the tibia. No specific balancing was required other than routine exposure and removal of osteophytes. The soft tissues were then injected with a combination of 20 mL of half percent Marcaine with epinephrine and 20 mL of Exparel. The trial components were then placed. The knee went into full extension and flexion beyond 120?. There was excellent medial- lateral balance throughout motion. Patellar tracking was excellent. The trial components were removed and size is confirmed for the final implants. The knee was then exsanguinated with an Esmarch dressing and the tourniquet reapplied for cementing. The knee was cleansed with Pulsavac irrigation and dried. The final components were cemented in with high viscosity vacuum mixed bone cement with antibiotics. The knee was held in extension and the patellar clamp until the cement had adequately cured. The knee was then irrigated with dilute Betadine solution. The extensor mechanism was closed with 5 interrupted #1 Vicryl sutures in 90 degrees of flexion. The joint was then injected with a combination of 1 g of tranexamic acid and 20 mL of quarter percent Marcaine with epinephrine. The subcutaneous tissue was closed with 2-0 Vicryl. The skin was closed with nayan and surgical adhesive. An Aquacel dressing and Roberto wrap were then applied. Complications: none Condition: stable Disposition: PACU Plan for aftercare: [facility] protocol for total knee arthroplasty. Since returning to the floor he his pain has been reasonably well controlled. He was initially slow to mobilize but has improved on his second day post operativ lucita. He has several people at home to assist in his post operative care. All of his prescriptions were given prior to surgery and he has them at home. Status at Discharge Cognitive/behavioral status at discharge: oriented Functional status at discharge: uses cane/walker Overall status at discharge: patient is progressing back to baseline Time Spent with Patient Less than 30 minutes Exam Vital Signs (past 8 hours): - 12/02/18 07:45 12/02/18 11:31 Temperature 98.2 F 98 F Pulse Rate 69 71 Respiratory Rate 16 16 Blood Pressure 141/71 H 129/46 L Pulse Oximetry 95 93 Oxygen Delivery Method Room Air Oxygen Flow Rate 0 Narrative Exam Narrative: Pleasant 73 year old male resting comfortably in bed in no apparent distress. Extrem Other: Aquacel dressing in place over right knee is clean, dry, and intact. No excessive swelling, warmth or erythema. Sensation intact in right distal extremity. 2+ DP pulse. Objective Labs Result Diagrams: 12/01/18 06:03 Discharge Plan Discharge Plan Patient Disposition: Home Discharge comment: Home after cleared by PT Discharge Med Rec/Prescriptions Prescriptions: New acetaminophen 325 mg Tablet 975 mg PO TID Qty: 0 RF: 0 oxycodone 5 mg Tablet 5 mg PO Q3HR PRN (Reason: Pain, Moderate (4-6)) Qty: 0 RF: 0 Continued terazosin 5 mg Capsule 5 mg PO DAILY RF: 0 atorvastatin 40 mg Tablet 40 mg PO QPM RF: 0 carvedilol 25 mg Tablet 37.5 mg PO BID RF: 0 Novolin 70/30 U-100 Insulin 100 unit/mL (70-30) Suspension 22 unit SUBCUT BID RF: 0 spironolactone 25 mg Tablet 25 mg PO DAILY RF: 0 clonidine HCl 0.2 mg Tablet 0.1 mg PO BID RF: 0 warfarin 5 mg Tablet 5 mg PO QPM RF: 0 losartan 100 mg Tablet 100 mg PO DAILY RF: 0 multivitamin Capsule 1 cap PO DAILY RF: 0 cholecalciferol (vitamin D3) [Vitamin D3] 1,000 unit Tablet 1,000 unit PO BID RF: 0 magnesium oxide 400 mg Capsule 400 mg PO BID RF: 0 Discontinued aspirin [Aspir-81] 81 mg Tablet,Delayed Release (Dr/Ec) 81 mg PO DAILY RF: 0 Follow up/Referrals: Emigdio Rogers MD [Physician] - (Follow up with the office as listed in your [facility] book.) Provider Discharge Instructions Diet: Carb-consistent/Diabetic Activity: Weightbearing as tolerated, use walker until cleared by physical th eraernesto. Elevate operative leg regularly to reduce swelling. Cold/Heat Therapy: Apply ice to affected area for 20 minutes at a time at least hourly while awake. Other treatments: Please refer to your [facility] book for all other questions and instructions. Skin/Wound/Dressing Care Report to your healthcare provider any signs of infection, such as:: chills, fever, night sweats, increased pain, unusual drainage and unusual redness Dressing: Keep dressing clean, dry, and intact. May shower with it in place but no soaking. Visit Report/Discharge Packet Instructions: DI for Knee Replacement, Oxycodone Stand Alone Forms: Surgery Discharge Visit Report Forms: Stroke Signs & Symptoms Discharge Data Primary Care Provider: Guillermo Ramirez Attending Provider: Emigdio Rogers Admit Date/Time: 11/30/18 10:00 Quality VTE Deep Vein Thrombosis/Pulmonary Embolism Present on Admission: No
== END 2018-12-02 14:54 | disposition home or self-care (01) | DRG 470 ==
PROVIDERS: Admitting Provider Orthopaedic Surgery; PCP Family Medicine; Visit Provider Orthopaedic Surgery
PROC: 0SRC0JZ Replacement of Right Knee Joint with Synthetic Substitute, Open Approach (ICD-10-PCS; CPT 27447; principal; 2018-11-30 12:15)
DX: M17.11 Unilateral primary osteoarthritis, right knee (principal); G47.33 Obstructive sleep apnea (adult) (pediatric); I45.10 Unspecified right bundle-branch block; E66.9 Obesity, unspecified; I10 Essential (primary) hypertension; E11.9 Type 2 diabetes mellitus without complications; I25.10 Atherosclerotic heart disease of native coronary artery without angina pectoris; I48.91 Unspecified atrial fibrillation; Z79.01 Long term (current) use of anticoagulants; Z68.38 Body mass index [BMI] 38.0-38.9, adult; E78.5 Hyperlipidemia, unspecified; Z87.891 Personal history of nicotine dependence
CPT/HCPCS: 36415; 64447; 73560; 82962; 85014; 85018; 94760; 97116; 97162; 97530; C1776; C9290; J0690; J2250; J2405; J2704; J3010

== ENCOUNTER 2022-08-26 14:48 | Inpatient (IN) | payer MEDICARE, OTHER, SELFPAY ==
[2018-11-30 19:09] VITALS: BMI 38.1
[2022-08-26] VITALS (51 sets, daily range): BP systolic 124–201; BP diastolic 59–113; PULSE 111–161; RESP 15–27; TEMP 36.6; O2SAT 94–100; BMI 40.6
--- NOTE | 2022-08-26 15:22 | DI.RAD.S_ITS ---
PROCEDURE: XR CHEST 1V INDICATIONS: chest pain TECHNIQUE: One view of the chest was acquired. COMPARISON: None. FINDINGS: Surgical changes and devices: None. Lungs and pleura: Lungs are clear. No pleural effusions or pneumothorax. Mediastinum: Mediastinal contours appear normal. Heart size is normal. Bones and chest wall: No suspicious bony lesions. Overlying soft tissues appear unremarkable. IMPRESSION: No evidence acute pulmonary process. Dictated by: Connor Shearer M.D. on 08/26/2022 at 16:18 Approved by: Connor Shearer M.D. on 08/26/2022 at 16:18
[2022-08-26 16:00] LABS: Add Manual Diff / Slide Review NO; Basophils Absolute Auto 0 /uL (0-100); Basophils Percent Auto 0.6 % (0-2); Eosinophils Absolute Auto 400 /uL (0-450); Hematocrit 31.4 % (41-53); Hemoglobin 9.9 g/dL (13.5-17.5); Lymphocytes Absolute Auto 1000 /uL (1100-4500); Lymphocytes Percent Auto 16.5 % (25-40); Mean Corpuscular HGB Conc 31.6 % (30-36); Mean Corpuscular Volume 88.8 fL (80-100); Monocytes Absolute Auto 600 /uL (0-900); Monocytes Percent Auto 9.4 % (3-14); Neutrophils Absolute Auto 4000 /uL (1500-7000); Neutrophils Percent Auto 67.5 % (50-75); Platelet Count 261 X10^3/uL (150-400); Red Blood Cell Count 3.54 X10^6/uL (4.5-5.9); Red Cell Distribution Width 16.6 % (11.6-14.8); White Blood Cell Count 5.9 X10^3/uL (4.5-11.0)
[2022-08-26 16:07] LABS: INR 1.8 (0.9-1.3); Prothrombin Time 20.6 SECONDS (10.1-12.7)
[2022-08-26 16:10] LABS: PTT Partial Thromboplastin Tim 31 SECONDS (26-36)
--- NOTE | 2022-08-26 16:11 | ED_ITS ---
HPI - SOB/Dyspnea <Bettina Alexjean-claude, DO - Last Filed: 08/31/22 07:26> General Chief Complaint: Shortness of Breath/Dyspnea Stated Complaint: sob/sores on both legs Time Seen by Provider: 08/26/22 15:21 Source: patient Mode of arrival: Wheelchair Limitations: no limitations History of Present Illness HPI Narrative: Patient is a 77-year-old male history of atrial fibrillation, diabetes, conge stive heart failure, COPD on home O2, coronary artery disease, presents today with increasing shortness of breath. He states he was down in [place] after driving there he stayed in hospital for about 4 days with what like AFib with RVR. He is chronically on warfarin and has been for a number of years. Once discharged from the hospital he then drove a few days back to [facility]. He arrived last night. He has had ongoing shortness of breath mostly with exertion. He feels like his AFib might be out of control again. He says he was not in sinus rhythm when he was discharged but he used to have paroxysmal atrial fibrillation. He occasionally has chest discomfort but is not really consistent. He denies any chest palpitations. He is chronic ongoing lower extremity wounds. He is followed by [facility]. They are weeping more. He denies any fever chills or cough. He says now that he is in the emergency department he actually feels significant better. Related Data Home Medications Medication Instructions Recorded Confirmed cholecalciferol (vitamin D3) 25 1,000 unit PO BID 11/28/18 08/27/22 mcg (1,000 unit) tablet (Vitamin D3) clonidine HCl 0.2 mg tablet 0.2 mg PO BID 11/28/18 08/27/22 insulin human U-100 NPH-regulr 22 unit SUBCUT BID 11/28/18 08/27/22 70-30 mix 100 unit/mL subcutaneous susp (Novolin 70/30 U-100 Insulin) magnesium oxide 400 mg PO BID 11/28/18 08/27/22 multivitamin 1 cap PO DAILY 11/28/18 08/27/22 terazosin 5 mg capsule 5 mg PO DAILY 11/28/18 08/27/22 warfarin 5 mg tablet 5 mg PO QPM 11/28/18 08/27/22 atorvastatin 40 mg tablet 40 mg PO BEDTIME 08/26/22 08/26/22 Previous Rx's Medication Instructions Recorded acetaminophen 325 mg tablet 975 mg PO TID #0 tabs 12/02/18 oxycodone 5 mg tablet 5 mg PO Q3HR PRN Pain, Moderate 12/02/18 (4-6) #0 tabs carvedilol 12.5 mg tablet (Coreg) 25 mg PO BID #60 tabs 08/29/22 digoxin 125 mcg (0.125 mg) tablet 0.25 mg PO DAILY@1700 #30 tabs 08/29/22 diltiazem HCl 360 mg capsule,24 360 mg PO DAILY #30 caps 08/29/22 hr,extended release furosemide 40 mg tablet 40 mg PO DAILY #30 tabs 08/29/22 Allergies Allergy/AdvReac Type Severity Reaction Status Date / Time adhesive tape AdvReac Severe SKIN Verified 08/26/22 15:05 TEARING - PAPER/SILK codeine AdvReac Severe DELAYED Verified 08/26/22 15:05 PURITIS w/ prolonged use amlodipine AdvReac Mild URINARY Verified 08/26/22 15:05 RETENTION, COUGH Review of Systems <Bettina Hart DO - Last Filed: 08/31/22 07:26> Review of Systems Narrative: GENERAL: Denies chills, fatigue, malaise, fever, sweats, travel HEENT: Denies sinus pain, ear pain, sore throat, difficulty swallowing, neck pain RESPIRATORY: Denies dyspnea, cough, wheezing, hemoptysis, sputum. CARDIOVASCULAR: Denies chest pain, palpitations, orthopnea, edema GASTROINTESTINAL: Denies nausea, vomiting, abdominal pain, diarrhea, constipation, melena. : Denies dysuria, frequency, incontinence, hematuria, urinary retention, flank pain. MUSCULOSKELETAL: Denies weakness, joint pain, or bony pain SKIN: No rash, no erythema, no pruritus NEUROLOGIC: Denies weakness, dizziness, headache, numbness, change in speech, confusion PSYCHIATRIC: No concerning psychosocial issues. 12 point review of systems is negative except for those stated above and HPI Patient History <DO Lincoln Morgan Last Filed: 08/31/22 07:26> Medical History Arthritis Asthma Benign tumor of adrenal gland Bilateral lower extremity edema BPH w urinary obs/LUTS Chronic pain CKD (chronic kidney disease), stage III COPD (chronic obstructive pulmonary disease) Heart murmur HTN (hypertension) Hyperlipidemia Lymphadenopathy Myocardial infarction Non-sustained ventricular tachycardia ALDAIR on CPAP Osteoarthritis Paroxysmal A-fib Pneumonia RBBB (right bundle branch block) Renal artery stenosis Renal calculus Status post placement of implantable loop recorder (~11/2016) Type 2 diabetes mellitus Surgical History History of arthroplasty of left knee (~2014) History of carpal tunnel release of both wrists (~2004) History of hemiarthroplasty of left shoulder (~2004) Hx of arthroscopy of left knee (~2008) Hx of cholecystectomy Hx of laminectomy Hx of shoulder surgery (~2007) S/P foot surgery, left Family History (Updated 08/27/22 @ 03:03 by SIM De Souza) Mother Myocardial infarction Father CVA (cerebral vascular accident) Myocardial infarction Sister Atrial fibrillation, chronic Status cardiac pacemaker Social History household members: significant other Smoking Status: Former smoker alcohol intake: current Smoking Status: Former smoker alcohol intake frequency: holidays/special occasions only Substance Use Type: marijuana Exam <Bettina Hart, DO - Last Filed: 08/31/22 07:26> Initial Vital Signs Initial Vital Signs: Vital Signs Temperature 97.9 F 08/26/22 15:05 Pulse Rate 126 H 08/26/22 15:05 Respiratory Rate 20 08/26/22 15:05 Blood Pressure 160/92 H 08/26/22 15:05 Pulse Oximetry 98 08/26/22 15:05 Oxygen Delivery Method 08/26/22 15:05 GENERAL: Alert 77-year-old male BMI 40 HEENT: Head atraumatic,EOMI, pupils reactive, face symmetric, moist mucous membranes CARDIOVASCULAR: Irregularly irregular no murmur tachycardic RESPIRATORY: Decreased breath sounds bilaterally ABDOMEN: Soft, nontender. Normoactive bowel sounds all 4 quadrants. No guarding or rebound. EXTREMITIES: Normal range of motion, no clubbing or edema. Neurovascularly intact NEUROLOGICAL: Alert and oriented x4.Normal gait and speech. SKIN: Bilateral lower extremities weeping mild erythema <Erwin Barillas DO - Last Filed: 08/27/22 01:20> Initial Vital Signs Initial Vital Signs: Vital Signs Temperature 97.9 F 08/26/22 15:05 Pulse Rate 126 H 08/26/22 15:05 Respiratory Rate 20 08/26/22 15:05 Blood Pressure 160/92 H 08/26/22 15:05 Pulse Oximetry 98 08/26/22 15:05 Oxygen Delivery Method 08/26/22 15:05 Course <Bettina Hart, - Last Filed: 08/31/22 07:26> Orders Ordered: Discontinued Medications Acetaminophen (Acetaminophen 325 Mg Tablet) 650 mg PO Q6H PRN PRN Reason: Fever/Mild Pain (1-3) Last Admin: 08/28/22 12:32 Dose: 650 mg Documented By: JULIANA Hydrocodone Bitart/Acetaminophen (Hydrocodone/Acet 5/325 Tablet) 1 tab PO Q6H PRN PRN Reason: Pain, Moderate (4-6) Albuterol/Ipratropium (Albuterol/Ipratropium 3 Ml Ampul) 3 ml INH NOW ONE Stop: 08/26/22 16:13 Last Admin: 08/26/22 16:25 Dose: 3 ml Documented By: KUN Atorvastatin Calcium (Atorvastatin 20 Mg Tablet) 40 mg PO BEDTIME [facility], [facility] Last Admin: 08/28/22 22:21 Dose: 40 mg Documented By: Admin: 08/27/22 20:57 Dose: 40 mg Documented By: Admin: 08/27/22 00:56 Dose: 40 mg Documented By: ANDRE Carvedilol (Carvedilol 12.5 Mg Tablet) 12.5 mg PO BID [facility], 1928[facility]1983 Last Admin: 08/28/22 22:21 Dose: 12.5 mg Documented By: Admin: 08/28/22 09:25 Dose: 12.5 mg Documented By: Admin: 08/27/22 20:56 Dose: 12.5 mg Documented By: Admin: 08/27/22 09:40 Dose: 12.5 mg Documented By: Admin: 08/27/22 01:01 Dose: 12.5 mg Documented By: ANDRE Carvedilol (Carvedilol 12.5 Mg Tablet) 25 mg PO BID [facility], [facility] Last Admin: 08/29/22 09:37 Dose: 25 mg Documented By: DAVID Dextrose (Dextrose 50 % In Water 25 Gm/50 Ml Syringe) 25 gm IV PRN PRN PRN Reason: Hypoglycemia Digoxin (Digoxin 0.125 Mg Tablet) 0.25 mg PO NOW ONE Stop: 08/26/22 23:01 Last Admin: 08/27/22 01:01 Dose: 0.25 mg Documented By: ANDRE Digoxin (Digoxin 0.125 Mg Tablet) 0.25 mg PO DAILY@1700 [facility], [facility] Last Admin: 08/28/22 17:50 Dose: 0.25 mg Documented By: Admin: 08/27/22 17:03 Dose: 0.25 mg Documented By: CARLTON Digoxin (Digoxin 500 Mcg/2 Ml Ampul) 250 mcg IV NOW ONE Stop: 08/28/22 13:25 Last Admin: 08/28/22 16:04 Dose: 250 mcg Documented By: JULIANA Diltiazem HCl (Diltiazem 5 Mg/Ml Sdv) 10 mg IV NOW ONE Stop: 08/26/22 18:03 Last Admin: 08/26/22 18:19 Dose: 10 mg Documented By: ANDRE Diltiazem HCl (Diltiazem Sr 60 Mg) 60 mg PO BID [facility], [facility] Last Admin: 08/28/22 09:25 Dose: 60 mg Documented By: Admin: 08/27/22 16:58 Dose: 60 mg Documented By: Admin: 08/27/22 13:20 Dose: 60 mg Documented By: CARLTON Diltiazem HCl (Diltiazem 30 Mg Tablet) 90 mg PO Q6HR [facility], [facility] Last Admin: 08/29/22 12:39 Dose: 90 mg Documented By: Admin: 08/29/22 06:16 Dose: 90 mg Documented By: Admin: 08/29/22 00:42 Dose: 90 mg Documented By: Admin: 08/28/22 17:53 Dose: 90 mg Documented By: JULIANA Furosemide (Furosemide 40 Mg/4 Ml Vial) 40 mg IV NOW ONE Stop: 08/26/22 17:04 Last Admin: 08/26/22 17:22 Dose: 40 mg Documented By: ANDRE Furosemide (Furosemide 40 Mg/4 Ml Vial) 40 mg IV NOW ONE Stop: 08/27/22 11:30 Last Admin: 08/27/22 12:54 Dose: 40 mg Documented By: CARLOTN Furosemide (Furosemide 40 Mg/4 Ml Vial) 40 mg IV 0700,1800 [facility], [facility] Last Admin: 08/28/22 18:04 Dose: 40 mg Documented By: Admin: 08/28/22 06:32 Dose: 40 mg Documented By: Admin: 08/27/22 17:46 Dose: 40 mg Documented By: CARLTON Furosemide (Furosemide 40 Mg Tablet) 40 mg PO DAILY NAM Last Admin: 08/29/22 09:37 Dose: 40 mg Documented By: DAVID Insulin Glargine (Insulin Glargine 100 Unit/Ml 3ml Pen) 10 unit SUBCUT BEDTIME NAM Last Admin: 08/28/22 22:22 Dose: 10 unit Documented By: ERIC Co-signed By: Admin: 08/27/22 21:03 Dose: 10 unit Documented By: KIKE Co-signed By: BHASKAR Insulin Human Lispro (Insulin Lispro 100 Unit/Ml 3ml Vial) 0 unit SUBCUT ACHS NAM; Protocol Last Admin: 08/29/22 12:42 Dose: 2 unit Documented By: DAVID Co-signed By: MANOJ Admin: 08/29/22 09:36 Dose: 1 unit Documented By: DAVID Co-signed By: MANOJ Admin: 08/28/22 22:23 Dose: Not Given Documented By: Admin: 08/28/22 17:49 Dose: 1 unit Documented By: JULIANA Co-signed By: MANOJ Admin: 08/28/22 12:46 Dose: 1 unit Documented By: JULIANA Co-signed By: STAR Admin: 08/28/22 09:02 Dose: Not Given Documented By: Admin: 08/27/22 21:07 Dose: Not Given Documented By: Admin: 08/27/22 17:07 Dose: 1 unit Documented By: CARLTON Co-signed By: DAVID Admin: 08/27/22 13:00 Dose: 1 unit Documented By: CARLTON Co-signed By: DAVID Admin: 08/27/22 08:18 Dose: 2 unit Documented By: JUSTIN Co-signed By: ANUSHKA Magnesium Chloride (Magnesium Chloride 64 Mg Tablet) 128 mg PO NOW ONE Stop: 08/27/22 11:46 Last Admin: 08/27/22 12:53 Dose: 128 mg Documented By: CARLTON Magnesium Chloride (Magnesium Chloride 64 Mg Tablet) 128 mg PO NOW ONE Stop: 08/28/22 08:01 Last Admin: 08/28/22 09:25 Dose: 128 mg Documented By: JULIANA Methylprednisolone (Methylprednisolone 125 Mg/2 Ml Vial) 125 mg IV NOW ONE Stop: 08/26/22 16:12 Last Admin: 08/26/22 17:21 Dose: 125 mg Documented By: ANDRE Metoprolol Tartrate (Metoprolol Ir 25 Mg Tablet) 25 mg PO NOW ONE Stop: 08/26/22 19:22 Last Admin: 08/26/22 19:51 Dose: 25 mg Documented By: ALEXANDRIA Naloxone HCl (Naloxone 0.4 Mg/Ml Vial) 0.2 mg IV Q2MIN PRN PRN Reason: Opiate Reversal Non-Formulary Medication (Carvedilol) 12.5 mg PO BID [facility], [facility] Last Admin: 08/26/22 23:10 Dose: Not Given Documented By: ANDRE Warfarin Sodium (Warfarin 5 Mg Tablet) 5 mg PO NOW ONE Stop: 08/26/22 22:50 Last Admin: 08/27/22 01:00 Dose: 5 mg Documented By: ANDRE Warfarin Sodium (Warfarin 5 Mg Tablet) 5 mg PO MOTUWEFR [facility], [facility]1983 Last Admin: 08/28/22 17:50 Dose: 5 mg Documented By: JULIANA Warfarin Sodium (Warfarin 5 Mg Tablet) 2.5 mg PO SuThSa@1700 [facility], [facility]1983 Last Admin: 08/27/22 17:03 Dose: 2.5 mg Documented By: CARLTON Vital Signs Vital signs: Vital Signs - 8 hr 08/26/22 17:30 08/26/22 18:19 08/26/22 18:00 Pulse Rate 126 H 127 H 123 H Respiratory Rate 24 Blood Pressure 167/92 H Pulse Oximetry 100 96 08/26/22 18:30 08/26/22 18:30 08/26/22 18:41 Pulse Rate 126 H 128 H Respiratory Rate 22 Blood Pressure 137/59 L Pulse Oximetry 98 96 08/26/22 18:41 08/26/22 18:50 08/26/22 18:50 Pulse Rate 123 H Respiratory Rate 20 Blood Pressure 161/69 H 153/95 H Pulse Oximetry 98 08/26/22 19:00 08/26/22 19:00 08/26/22 19:10 Pulse Rate 130 H Respiratory Rate 18 Blood Pressure 164/82 H 145/70 H Pulse Oximetry 97 08/26/22 19:10 08/26/22 19:20 08/26/22 19:20 Pulse Rate 131 H 129 H Respiratory Rate 20 Blood Pressure 131/83 Pulse Oximetry 96 97 08/26/22 19:30 08/26/22 19:30 08/26/22 19:41 Pulse Rate 132 H 134 H Respiratory Rate 24 Blood Pressure 148/92 H Pulse Oximetry 96 96 08/26/22 19:41 08/26/22 19:50 08/26/22 19:50 Pulse Rate 128 H Respiratory Rate 18 Blood Pressure 153/102 H 146/95 H Pulse Oximetry 96 08/26/22 20:00 08/26/22 20:00 08/26/22 20:10 Pulse Rate 126 H 124 H Respiratory Rate 22 21 Blood Pressure 169/97 H Pulse Oximetry 96 95 08/26/22 20:10 08/26/22 20:20 08/26/22 20:20 Pulse Rate 127 H Respiratory Rate 21 Blood Pressure 178/101 H 169/84 H Pulse Oximetry 95 08/26/22 20:30 08/26/22 20:30 08/26/22 20:40 Pulse Rate 136 H Respiratory Rate 23 Blood Pressure 146/81 H 141/90 H Pulse Oximetry 95 08/26/22 20:40 08/26/22 20:50 08/26/22 20:50 Pulse Rate 125 H 124 H Respiratory Rate 21 18 Blood Pressure 175/111 H Pulse Oximetry 94 94 08/26/22 21:00 08/26/22 21:00 08/26/22 21:10 Pulse Rate 127 H 124 H Respiratory Rate Blood Pressure 187/94 H Pulse Oximetry 96 95 08/26/22 21:10 08/26/22 21:21 08/26/22 21:21 Pulse Rate 129 H Respiratory Rate 23 Blood Pressure 201/87 H 184/78 H Pulse Oximetry 94 08/26/22 21:30 08/26/22 21:31 08/26/22 21:31 Pulse Rate 124 H 134 H Respiratory Rate 23 Blood Pressure 173/74 H Pulse Oximetry 95 95 08/26/22 21:40 08/26/22 21:40 08/26/22 21:50 Pulse Rate 125 H Respiratory Rate 27 H Blood Pressure 185/86 H 158/74 H Pulse Oximetry 95 08/26/22 21:50 08/26/22 22:00 08/26/22 22:01 Pulse Rate 155 H 135 H Respiratory Rate 27 H Blood Pressure 182/86 H Pulse Oximetry 94 94 08/26/22 22:01 08/26/22 22:10 08/26/22 22:10 Pulse Rate 130 H 131 H Respiratory Rate 24 24 Blood Pressure 153/82 H Pulse Oximetry 95 96 12/21/22 22:21 08/26/22 22:21 08/26/22 22:30 Pulse Rate 128 H Respiratory Rate 25 H Blood Pressure 167/74 H 160/80 H Pulse Oximetry 96 08/26/22 22:30 08/26/22 22:40 08/26/22 22:40 Pulse Rate 131 H 137 H Respiratory Rate 27 H Blood Pressure 159/101 H Pulse Oximetry 96 95 08/26/22 22:50 08/26/22 22:50 08/26/22 23:00 Pulse Rate 133 H 161 H Respiratory Rate 24 Blood Pressure 143/82 H Pulse Oximetry 95 94 08/26/22 23:01 08/26/22 23:01 Pulse Rate 143 H Respiratory Rate Blood Pressure 158/113 H Pulse Oximetry 94 <Erwin Barillas DO - Last Filed: 08/27/22 01:20> Orders Ordered: Discontinued Medications Acetaminophen (Acetaminophen 325 Mg Tablet) 650 mg PO Q6H PRN PRN Reason: Fever/Mild Pain (1-3) Last Admin: 08/28/22 12:32 Dose: 650 mg Documented By: JULIANA Hydrocodone Bitart/Acetaminophen (Hydrocodone/Acet 5/325 Tablet) 1 tab PO Q6H PRN PRN Reason: Pain, Moderate (4-6) Albuterol/Ipratropium (Albuterol/Ipratropium 3 Ml Ampul) 3 ml INH NOW ONE Stop: 08/26/22 16:13 Last Admin: 08/26/22 16:25 Dose: 3 ml Documented By: KUN Atorvastatin Calcium (Atorvastatin 20 Mg Tablet) 40 mg PO BEDTIME [facility], [facility]1983 Last Admin: 08/28/22 22:21 Dose: 40 mg Documented By: Admin: 08/27/22 20:57 Dose: 40 mg Documented By: Admin: 08/27/22 00:56 Dose: 40 mg Documented By: ANDRE Carvedilol (Carvedilol 12.5 Mg Tablet) 12.5 mg PO BID [facility], [facility]1983 Last Admin: 08/28/22 22:21 Dose: 12.5 mg Documented By: Admin: 08/28/22 09:25 Dose: 12.5 mg Documented By: Admin: 08/27/22 20:56 Dose: 12.5 mg Documented By: Admin: 08/27/22 09:40 Dose: 12.5 mg Documented By: Admin: 08/27/22 01:01 Dose: 12.5 mg Documented By: ANDRE Carvedilol (Carvedilol 12.5 Mg Tablet) 25 mg PO BID [facility], [facility]1983 Last Admin: 08/29/22 09:37 Dose: 25 mg Documented By: DAVID Dextrose (Dextrose 50 % In Water 25 Gm/50 Ml Syringe) 25 gm IV PRN PRN PRN Reason: Hypoglycemia Digoxin (Digoxin 0.125 Mg Tablet) 0.25 mg PO NOW ONE Stop: 08/26/22 23:01 Last Admin: 08/27/22 01:01 Dose: 0.25 mg Documented By: ANDRE Digoxin (Digoxin 0.125 Mg Tablet) 0.25 mg PO DAILY@1700 [facility], [facility] Last Admin: 08/28/22 17:50 Dose: 0.25 mg Documented By: Admin: 08/27/22 17:03 Dose: 0.25 mg Documented By: CARLTON Digoxin (Digoxin 500 Mcg/2 Ml Ampul) 250 mcg IV NOW ONE Stop: 08/28/22 13:25 Last Admin: 08/28/22 16:04 Dose: 250 mcg Documented By: JULIANA Diltiazem HCl (Diltiazem 5 Mg/Ml Sdv) 10 mg IV NOW ONE Stop: 08/26/22 18:03 Last Admin: 08/26/22 18:19 Dose: 10 mg Documented By: ANDRE Diltiazem HCl (Diltiazem Sr 60 Mg) 60 mg PO BID [facility], [facility]1983 Last Admin: 08/28/22 09:25 Dose: 60 mg Documented By: Admin: 08/27/22 16:58 Dose: 60 mg Documented By: Admin: 08/27/22 13:20 Dose: 60 mg Documented By: CARLTON Diltiazem HCl (Diltiazem 30 Mg Tablet) 90 mg PO Q6HR [facility], [facility]1983 Last Admin: 08/29/22 12:39 Dose: 90 mg Documented By: Admin: 08/29/22 06:16 Dose: 90 mg Documented By: Admin: 08/29/22 00:42 Dose: 90 mg Documented By: Admin: 08/28/22 17:53 Dose: 90 mg Documented By: JULIANA Furosemide (Furosemide 40 Mg/4 Ml Vial) 40 mg IV NOW ONE Stop: 08/26/22 17:04 Last Admin: 08/26/22 17:22 Dose: 40 mg Documented By: ANDRE Furosemide (Furosemide 40 Mg/4 Ml Vial) 40 mg IV NOW ONE Stop: 08/27/22 11:30 Last Admin: 08/27/22 12:54 Dose: 40 mg Documented By: CARLTON Furosemide (Furosemide 40 Mg/4 Ml Vial) 40 mg IV 0700,1800 [facility], [facility] Last Admin: 08/28/22 18:04 Dose: 40 mg Documented By: Admin: 08/28/22 06:32 Dose: 40 mg Documented By: Admin: 08/27/22 17:46 Dose: 40 mg Documented By: CARLTON Furosemide (Furosemide 40 Mg Tablet) 40 mg PO DAILY [facility], [facility] Last Admin: 08/29/22 09:37 Dose: 40 mg Documented By: DAVID Insulin Glargine (Insulin Glargine 100 Unit/Ml 3ml Pen) 10 unit SUBCUT BEDTIME [facility], [facility]1983 Last Admin: 08/28/22 22:22 Dose: 10 unit Documented By: ERIC Co-signed By: Admin: 08/27/22 21:03 Dose: 10 unit Documented By: KIKE Co-signed By: BHASKAR Insulin Human Lispro (Insulin Lispro 100 Unit/Ml 3ml Vial) 0 unit SUBCUT ACHS S CH; Protocol Last Admin: 08/29/22 12:42 Dose: 2 unit Documented By: DAVID Co-signed By: MANOJ Admin: 08/29/22 09:36 Dose: 1 unit Documented By: DAVID Co-signed By: MANOJ Admin: 08/28/22 22:23 Dose: Not Given Documented By: Admin: 08/28/22 17:49 Dose: 1 unit Documented By: JULIANA Co-signed By: MANOJ Admin: 08/28/22 12:46 Dose: 1 unit Documented By: JULIANA Co-signed By: STAR Admin: 08/28/22 09:02 Dose: Not Given Documented By: Admin: 08/27/22 21:07 Dose: Not Given Documented By: Admin: 08/27/22 17:07 Dose: 1 unit Documented By: CARLTON Co-signed By: DAVID Admin: 08/27/22 13:00 Dose: 1 unit Documented By: CARLTON Co-signed By: DAVID Admin: 08/27/22 08:18 Dose: 2 unit Documented By: JUSTIN Co-signed By: ANUSHKA Magnesium Chloride (Magnesium Chloride 64 Mg Tablet) 128 mg PO NOW ONE Stop: 08/27/22 11:46 Last Admin: 08/27/22 12:53 Dose: 128 mg Documented By: CARLTON Magnesium Chloride (Magnesium Chloride 64 Mg Tablet) 128 mg PO NOW ONE Stop: 08/28/22 08:01 Last Admin: 08/28/22 09:25 Dose: 128 mg Documented By: JULIANA Methylprednisolone (Methylprednisolone 125 Mg/2 Ml Vial) 125 mg IV NOW ONE Stop: 08/26/22 16:12 Last Admin: 08/26/22 17:21 Dose: 125 mg Documented By: ANDRE Metoprolol Tartrate (Metoprolol Ir 25 Mg Tablet) 25 mg PO NOW ONE Stop: 08/26/22 19:22 Last Admin: 08/26/22 19:51 Dose: 25 mg Documented By: ALEXANDRIA Naloxone HCl (Naloxone 0.4 Mg/Ml Vial) 0.2 mg IV Q2MIN PRN PRN Reason: Opiate Reversal Non-Formulary Medication (Carvedilol) 12.5 mg PO BID [facility] Last Admin: 08/26/22 23:10 Dose: Not Given Documented By: ANDRE Warfarin Sodium (Warfarin 5 Mg Tablet) 5 mg PO NOW ONE Stop: 08/26/22 22:50 Last Admin: 08/27/22 01:00 Dose: 5 mg Documented By: ANDRE Warfarin Sodium (Warfarin 5 Mg Tablet) 5 mg [facility] Last Admin: 08/28/22 17:50 Dose: 5 mg Documented By: JULIANA Warfarin Sodium (Warfarin 5 Mg Tablet) 2.5 mg PO SuThSa@1700 [facility], [facility]1983 Last Admin: 08/27/22 17:03 Dose: 2.5 mg Documented By: CARLTON Vital Signs Vital signs: Vital Signs - 8 hr 08/26/22 17:30 08/26/22 18:19 08/26/22 18:00 Pulse Rate 126 H 127 H 123 H Respiratory Rate 24 Blood Pressure 167/92 H Pulse Oximetry 100 96 08/26/22 18:30 08/26/22 18:30 08/26/22 18:41 Pulse Rate 126 H 128 H Respiratory Rate 22 Blood Pressure 137/59 L Pulse Oximetry 98 96 08/26/22 18:41 08/26/22 18:50 08/26/22 18:50 Pulse Rate 123 H Respiratory Rate 20 Blood Pressure 161/69 H 153/95 H Pulse Oximetry 98 08/26/22 19:00 08/26/22 19:00 08/26/22 19:10 Pulse Rate 130 H Respiratory Rate 18 Blood Pressure 164/82 H 145/70 H Pulse Oximetry 97 08/26/22 19:10 08/26/22 19:20 08/26/22 19:20 Pulse Rate 131 H 129 H Respiratory Rate 20 Blood Pressure 131/83 Pulse Oximetry 96 97 08/26/22 19:30 08/26/22 19:30 08/26/22 19:41 Pulse Rate 132 H 134 H Respiratory Rate 24 Blood Pressure 148/92 H Pulse Oximetry 96 96 08/26/22 19:41 08/26/22 19:50 08/26/22 19:50 Pulse Rate 128 H Respiratory Rate 18 Blood Pressure 153/102 H 146/95 H Pulse Oximetry 96 08/26/22 20:00 08/26/22 20:00 08/26/22 20:10 Pulse Rate 126 H 124 H Respiratory Rate 22 21 Blood Pressure 169/97 H Pulse Oximetry 96 95 08/26/22 20:10 08/26/22 20:20 08/26/22 20:20 Pulse Rate 127 H Respiratory Rate 21 Blood Pressure 178/101 H 169/84 H Pulse Oximetry 95 08/26/22 20:30 08/26/22 20:30 08/26/22 20:40 Pulse Rate 136 H Respiratory Rate 23 Blood Pressure 146/81 H 141/90 H Pulse Oximetry 95 08/26/22 20:40 08/26/22 20:50 08/26/22 20:50 Pulse Rate 125 H 124 H Respiratory Rate 21 18 Blood Pressure 175/111 H Pulse Oximetry 94 94 08/26/22 21:00 08/26/22 21:00 08/26/22 21:10 Pulse Rate 127 H 124 H Respiratory Rate Blood Pressure 187/94 H Pulse Oximetry 96 95 08/26/22 21:10 08/26/22 21:21 08/26/22 21:21 Pulse Rate 129 H Respiratory Rate 23 Blood Pressure 201/87 H 184/78 H Pulse Oximetry 94 08/26/22 21:30 08/26/22 21:31 08/26/22 21:31 Pulse Rate 124 H 134 H Respiratory Rate 23 Blood Pressure 173/74 H Pulse Oximetry 95 95 08/26/22 21:40 08/26/22 21:40 08/26/22 21:50 Pulse Rate 125 H Respiratory Rate 27 H Blood Pressure 185/86 H 158/74 H Pulse Oximetry 95 08/26/22 21:50 08/26/22 22:00 08/26/22 22:01 Pulse Rate 155 H 135 H Respiratory Rate 27 H Blood Pressure 182/86 H Pulse Oximetry 94 94 08/26/22 22:01 08/26/22 22:10 08/26/22 22:10 Pulse Rate 130 H 131 H Respiratory Rate 24 24 Blood Pressure 153/82 H Pulse Oximetry 95 96 08/26/22 22:21 08/26/22 22:21 08/26/22 22:30 Pulse Rate 128 H Respiratory Rate 25 H Blood Pressure 167/74 H 160/80 H Pulse Oximetry 96 08/26/22 22:30 08/26/22 22:40 08/26/22 22:40 Pulse Rate 131 H 137 H Respiratory Rate 27 H Blood Pressure 159/101 H Pulse Oximetry 96 95 08/26/22 22:50 08/26/22 22:50 08/26/22 23:00 Pulse Rate 133 H 161 H Respiratory Rate 24 Blood Pressure 143/82 H Pulse Oximetry 95 94 08/26/22 23:01 08/26/22 23:01 Pulse Rate 143 H Respiratory Rate Blood Pressure 158/113 H Pulse Oximetry 94 MDM - SOB/Dyspnea <Bettina Hart, DO - Last Filed: 08/31/22 07:26> Lab Data Result diagrams: 08/29/22 06:45 08/29/22 06:45 Labs: Lab Results 08/26/22 08/26/22 08/26/22 Range/Units 15:45 15:45 15:45 WBC 5.9 (4.5-11.0) X10^3/uL RBC 3.54 L (4.5-5.9) X10^6/uL Hgb 9.9 L (13.5-17.5) g/dL Hct 31.4 L (41-53) % MCV 88.8 (80-100) fL MCH 28.0 (26-34) PG MCHC 31.6 (30-36) % RDW 16.6 H (11.6-14.8) % Plt Count 261 (150-400) X10^3/uL Neut % (Auto) 67.5 (50-75) % Lymph % (Auto) 16.5 L (25-40) % [place] % (Auto) 9.4 (3-14) % Eos % (Auto) 6.0 H (2-4) % Baso % (Auto) 0.6 (0-2) % Neut # (Auto) 4000 (3401-6673) /uL Lymph # (Auto) 1000 L (4978-2212) /uL [place] # (Auto) 600 (0-900) /uL Eos # (Auto) 400 (0-450) /uL Baso # (Auto) 0 (0-100) /uL PT 20.6 H (10.1-12.7) SECONDS INR 1.8 H (0.9-1.3) APTT 31 (26-36) SECONDS Sodium 140 (137-145) mmol/L Potassium 5.2 H (3.4-5.1) mmol/L Chloride 105 (98-107) mmol/L Carbon Dioxide 27 (22-32) mmol/L BUN 32 H (9-20) mg/dL Creatinine 1.33 H (0.66-1.25) mg/dL Estimated GFR 56 L (>60) mL/min BUN/Creatinine Ratio 24.1 H (6-22) Glucose 100 (80-110) mg/dL Hemoglobin A1c (4.0-6.0) % Calcium 8.7 (8.4-10.2) mg/dL Magnesium (1.6-2.3) mg/dL Total Bilirubin 0.7 (0.2-1.3) mg/dL AST 30 (17-59) IU/L ALT 188 H (<50) IU/L Alkaline Phosphatase 123 (38-126) U/L Total Creatine Kinase 87 (55-170) U/L CK-MB (CK-2) TNP CK-MB (CK-2) Rel Index TNP Troponin I 0.016 (0.01-0.034) ng/mL NT-Pro-B Natriuret Pep 4410 H (<450) pg/mL Total Protein 7.1 (6.3-8.2) g/dL Albumin 3.4 L (3.5-5.0) g/dL Globulin 3.7 (1.7-4.1) g/dL Albumin/Globulin Ratio 0.9 L (1.0-2.8) Lipase 134 (23-300) U/L Digoxin (0.8-2.0) ng/mL SARS-CoV-2 (PCR) (Negative) Influenza A (RT-PCR) (NEGATIVE) Influenza B (RT-PCR) (NEGATIVE) RSV (PCR) (Negative) 08/26/22 08/26/22 08/26/22 Range/Units 15:45 15:45 15:45 WBC (4.5-11.0) X10^3/uL RBC (4.5-5.9) X10^6/uL Hgb (13.5-17.5) g/dL Hct (41-53) % MCV (80-100) fL MCH (26-34) PG MCHC (30-36) % RDW (11.6-14.8) % Plt Count (150-400) X10^3/uL Neut % (Auto) (50-75) % Lymph % (Auto) (25-40) % [place] % (Auto) (3-14) % Eos % (Auto) (2-4) % Baso % (Auto) (0-2) % Neut # (Auto) (5490-8638) /uL Lymph # (Auto) (8483-8369) /uL [place] # (Auto) (0-900) /uL Eos # (Auto) (0-450) /uL Baso # (Auto) (0-100) /uL PT (10.1-12.7) SECONDS INR (0.9-1.3) APTT (26-36) SECONDS Sodium (137-145) mmol/L Potassium (3.4-5.1) mmol/L Chloride (98-107) mmol/L Carbon Dioxide (22-32) mmol/L BUN (9-20) mg/dL Creatinine (0.66-1.25) mg/dL Estimated GFR (>60) mL/min BUN/Creatinine Ratio (6-22) Glucose (80-110) mg/dL Hemoglobin A1c 7.3 H (4.0-6.0) % Calcium (8.4-10.2) mg/dL Magnesium 1.7 (1.6-2.3) mg/dL Total Bilirubin (0.2-1.3) mg/dL AST (17-59) IU/L ALT (<50) IU/L Alkaline Phosphatase (38-126) U/L Total Creatine Kinase (55-170) U/L CK-MB (CK-2) CK-MB (CK-2) Rel Index Troponin I (0.01-0.034) ng/mL NT-Pro-B Natriuret Pep (<450) pg/mL Total Protein (6.3-8.2) g/dL Albumin (3.5-5.0) g/dL Globulin (1.7-4.1) g/dL Albumin/Globulin Ratio (1.0-2.8) Lipase (23-300) U/L Digoxin 1.2 (0.8-2.0) ng/mL SARS-CoV-2 (PCR) (Negative) Influenza A (RT-PCR) (NEGATIVE) Influenza B (RT-PCR) (NEGATIVE) RSV (PCR) (Negative) 08/26/22 Range/Units 16:10 WBC (4.5-11.0) X10^3/uL RBC (4.5-5.9) X10^6/uL Hgb (13.5-17.5) g/dL Hct (41-53) % MCV (80-100) fL MCH (26-34) PG MCHC (30-36) % RDW (11.6-14.8) % Plt Count (150-400) X10^3/uL Neut % (Auto) (50-75) % Lymph % (Auto) (25-40) % [place] % (Auto) (3-14) % Eos % (Auto) (2-4) % Baso % (Auto) (0-2) % Neut # (Auto) (3757-0302) /uL Lymph # (Auto) (7677-8771) /uL [place] # (Auto) (0-900) /uL Eos # (Auto) (0-450) /uL Baso # (Auto) (0-100) /uL PT (10.1-12.7) SECONDS INR (0.9-1.3) APTT (26-36) SECONDS Sodium (137-145) mmol/L Potassium (3.4-5.1) mmol/L Chloride (98-107) mmol/L Carbon Dioxide (22-32) mmol/L BUN (9-20) mg/dL Creatinine (0.66-1.25) mg/dL Estimated GFR (>60) mL/min BUN/Creatinine Ratio (6-22) Glucose (80-110) mg/dL Hemoglobin A1c (4.0-6.0) % Calcium (8.4-10.2) mg/dL Magnesium (1.6-2.3) mg/dL Total Bilirubin (0.2-1.3) mg/dL AST (17-59) IU/L ALT (<50) IU/L Alkaline Phosphatase (38-126) U/L Total Creatine Kinase (55-170) U/L CK-MB (CK-2) CK-MB (CK-2) Rel Index Troponin I (0.01-0.034) ng/mL NT-Pro-B Natriuret Pep (<450) pg/mL Total Protein (6.3-8.2) g/dL Albumin (3.5-5.0) g/dL Globulin (1.7-4.1) g/dL Albumin/Globulin Ratio (1.0-2.8) Lipase (23-300) U/L Digoxin (0.8-2.0) ng/mL SARS-CoV-2 (PCR) Positive H (Negative) Influenza A (RT-PCR) Flu a negative (NEGATIVE) Influenza B (RT-PCR) Flu b negative (NEGATIVE) RSV (PCR) Negative (Negative) Point of Care Testing Glucose POC 227 Imaging Data Chest x-ray: Radiologist's Impression: XRay Report Signed Patient: Logan Detnon MR#: [id number] : 1945 Acct:[id number] Age/Sex: 77 / M Date of Service: 08/26/22 Loc: ED Accession Number: [id number] ?? Procedure: XR chest 1V Ordering Provider: Bettina Hart D.O. PROCEDURE:? XR CHEST 1V ? INDICATIONS:? chest pain ? TECHNIQUE:? One view of the chest was acquired.? ? COMPARISON:? None. ? FINDINGS:? ? Surgical changes and devices:? None.? ? Lungs and pleura:? Lungs are clear.? No pleural effusions or pneumothorax.? ? Mediastinum:? Mediastinal contours appear normal.? Heart size is normal.? ? Bones and chest wall:? No suspicious bony lesions.? Overlying soft tissues appear unremarkable.? ? IMPRESSION:? No evidence acute pulmonary process. ? ? ? Dictated by: Connor Shearer M.D. on 08/26/2022 at 16:18 ? ? ECG Data Interpretation: Atrial fibrillation rate [address] changes artifact noted atrial fibrillation new from 2019 right bundle-branch block is seen on both EKGs. MDM Narrative Medical decision making narrative: Patient is 77-year-old male multiple comorbidities, COPD, CHF atrial fibrillation on warfarin presenting today with increasing shortness of breath. He was just admitted to hospital records are being requested. He apparently also had a recent COVID infection as well. He is noted to be in AFib heart rate in the 120s. Blood work does look like he has some congestive heart failure with BNP greater than 4000. He is still positive for COVID he is no leukocytosis does not appear septic he is not febrile. CT angio does not show any pulmonary embolism. Is given 1 dose of Lasix which will also help his potassium of 5.2. He was given albuterol but it did not seem to help much. Although his heart rate started to his heart rate increased. Patient is given 1 dose of diltiazem. Patient signed out to Dr. Barillas for further disposition <Erwin Barillas, DO - Last Filed: 08/27/22 01:20> Lab Data Labs: Lab Results 08/26/22 08/26/22 08/26/22 Range/Units 15:45 15:45 15:45 WBC 5.9 (4.5-11.0) X10^3/uL RBC 3.54 L (4.5-5.9) X10^6/uL Hgb 9.9 L (13.5-17.5) g/dL Hct 31.4 L (41-53) % MCV 88.8 (80-100) fL MCH 28.0 (26-34) PG MCHC 31.6 (30-36) % RDW 16.6 H (11.6-14.8) % Plt Count 261 (150-400) X10^3/uL Neut % (Auto) 67.5 (50-75) % Lymph % (Auto) 16.5 L (25-40) % [place] % (Auto) 9.4 (3-14) % Eos % (Auto) 6.0 H (2-4) % Baso % (Auto) 0.6 (0-2) % Neut # (Auto) 4000 (7240-8070) /uL Lymph # (Auto) 1000 L (2341-6598) /uL [place] # (Auto) 600 (0-900) /uL Eos # (Auto) 400 (0-450) /uL Baso # (Auto) 0 (0-100) /uL PT 20.6 H (10.1-12.7) SECONDS INR 1.8 H (0.9-1.3) APTT 31 (26-36) SECONDS Sodium 140 (137-145) mmol/L Potassium 5.2 H (3.4-5.1) mmol/L Chloride 105 (98-107) mmol/L Carbon Dioxide 27 (22-32) mmol/L BUN 32 H (9-20) mg/dL Creatinine 1.33 H (0.66-1.25) mg/dL Estimated GFR 56 L (>60) mL/min BUN/Creatinine Ratio 24.1 H (6-22) Glucose 100 (80-110) mg/dL Hemoglobin A1c (4.0-6.0) % Calcium 8.7 (8.4-10.2) mg/dL Magnesium (1.6-2.3) mg/dL Total Bilirubin 0.7 (0.2-1.3) mg/dL AST 30 (17-59) IU/L ALT 188 H (<50) IU/L Alkaline Phosphatase 123 (38-126) U/L Total Creatine Kinase 87 (55-170) U/L CK-MB (CK-2) TNP CK-MB (CK-2) Rel Index TNP Troponin I 0.016 (0.01-0.034) ng/mL NT-Pro-B Natriuret Pep 4410 H (<450) pg/mL Total Protein 7.1 (6.3-8.2) g/dL Albumin 3.4 L (3.5-5.0) g/dL Globulin 3.7 (1.7-4.1) g/dL Albumin/Globulin Ratio 0.9 L (1.0-2.8) Lipase 134 (23-300) U/L Digoxin (0.8-2.0) ng/mL SARS-CoV-2 (PCR) (Negative) Influenza A (RT-PCR) (NEGATIVE) Influenza B (RT-PCR) (NEGATIVE) RSV (PCR) (Negative) 08/26/22 08/26/22 08/26/22 Range/Units 15:45 15:45 15:45 WBC (4.5-11.0) X10^3/uL RBC (4.5-5.9) X10^6/uL Hgb (13.5-17.5) g/dL Hct (41-53) % MCV (80-100) fL MCH (26-34) PG MCHC (30-36) % RDW (11.6-14.8) % Plt Count (150-400) X10^3/uL Neut % (Auto) (50-75) % Lymph % (Auto) (25-40) % [place] % (Auto) (3-14) % Eos % (Auto) (2-4) % Baso % (Auto) (0-2) % Neut # (Auto) (6771-5702) /uL Lymph # (Auto) (5211-0836) /uL [place] # (Auto) (0-900) /uL Eos # (Auto) (0-450) /uL Baso # (Auto) (0-100) /uL PT (10.1-12.7) SECONDS INR (0.9-1.3) APTT (26-36) SECONDS Sodium (137-145) mmol/L Potassium (3.4-5.1) mmol/L Chloride (98-107) mmol/L Carbon Dioxide (22-32) mmol/L BUN (9-20) mg/dL Creatinine (0.66-1.25) mg/dL Estimated GFR (>60) mL/min BUN/Creatinine Ratio (6-22) Glucose (80-110) mg/dL Hemoglobin A1c 7.3 H (4.0-6.0) % Calcium (8.4-10.2) mg/dL Magnesium 1.7 (1.6-2.3) mg/dL Total Bilirubin (0.2-1.3) mg/dL AST (17-59) IU/L ALT (<50) IU/L Alkaline Phosphatase (38-126) U/L Total Creatine Kinase (55-170) U/L CK-MB (CK-2) CK-MB (CK-2) Rel Index Troponin I (0.01-0.034) ng/mL NT-Pro-B Natriuret Pep (<450) pg/mL Total Protein (6.3-8.2) g/dL Albumin (3.5-5.0) g/dL Globulin (1.7-4.1) g/dL Albumin/Globulin Ratio (1.0-2.8) Lipase (23-300) U/L Digoxin 1.2 (0.8-2.0) ng/mL SARS-CoV-2 (PCR) (Negative) Influenza A (RT-PCR) (NEGATIVE) Influenza B (RT-PCR) (NEGATIVE) RSV (PCR) (Negative) 08/26/22 Range/Units 16:10 WBC (4.5-11.0) X10^3/uL RBC (4.5-5.9) X10^6/uL Hgb (13.5-17.5) g/dL Hct (41-53) % MCV (80-100) fL MCH (26-34) PG MCHC (30-36) % RDW (11.6-14.8) % Plt Count (150-400) X10^3/uL Neut % (Auto) (50-75) % Lymph % (Auto) (25-40) % [place] % (Auto) (3-14) % Eos % (Auto) (2-4) % Baso % (Auto) (0-2) % Neut # (Auto) (7459-6073) /uL Lymph # (Auto) (8680-1154) /uL [place] # (Auto) (0-900) /uL Eos # (Auto) (0-450) /uL Baso # (Auto) (0-100) /uL PT (10.1-12.7) SECONDS INR (0.9-1.3) APTT (26-36) SECONDS Sodium (137-145) mmol/L Potassium (3.4-5.1) mmol/L Chloride (98-107) mmol/L Carbon Dioxide (22-32) mmol/L BUN (9-20) mg/dL Creatinine (0.66-1.25) mg/dL Estimated GFR (>60) mL/min BUN/Creatinine Ratio (6-22) Glucose (80-110) mg/dL Hemoglobin A1c (4.0-6.0) % Calcium (8.4-10.2) mg/dL Magnesium (1.6-2.3) mg/dL Total Bilirubin (0.2-1.3) mg/dL AST (17-59) IU/L ALT (<50) IU/L Alkaline Phosphatase (38-126) U/L Total Creatine Kinase (55-170) U/L CK-MB (CK-2) CK-MB (CK-2) Rel Index Troponin I (0.01-0.034) ng/mL NT-Pro-B Natriuret Pep (<450) pg/mL Total Protein (6.3-8.2) g/dL Albumin (3.5-5.0) g/dL Globulin (1.7-4.1) g/dL Albumin/Globulin Ratio (1.0-2.8) Lipase (23-300) U/L Digoxin (0.8-2.0) ng/mL SARS-CoV-2 (PCR) Positive H (Negative) Influenza A (RT-PCR) Flu a negative (NEGATIVE) Influenza B (RT-PCR) Flu b negative (NEGATIVE) RSV (PCR) Negative (Negative) Point of Care Testing Glucose POC 227 MDM Narrative Medical decision making narrative: Patient is 77-year-old male multiple comorbidities, COPD, CHF atrial fibrillation on warfarin presenting today with increasing shortness of breath. He was just admitted to hospital records are being requested. He apparently also had a recent COVID infection as well. He is noted to be in AFib heart rate in the 120s. Blood work does look like he has some congestive heart failure with BNP greater than 4000. He is still positive for COVID he is no leukocytosis does not appear septic he is not febrile. CT angio does not show any pulmonary embolism. Is given 1 dose of Lasix which will also help his potassium of 5.2. He was given albuterol but it did not seem to help much. Although his heart rate started to his heart rate increased. Patient is given 1 dose of diltiazem. Patient signed out to Dr. Barillas for further disposition Dr barillas: Received turned over. Review patient's history and physical and workup up to this point. Performed my own independent exam. Patient did have some improvement of heart rate with the diltiazem however his heart rate still remained in the 120s. He was then given metoprolol which maybe had a small effect on his heart rate. He states that his shortness of breath is better at rest. His lower extremity wounds are not new. There are chronic ulcerations. Low suspicion for cellulitis however because of his tachycardia and is fairly significant dyspnea on exertion patient does require admission to the hospital. He is subtherapeutic on his INR so is not a candidate for cardioversion. Had a long discussion with him regarding this. Discussed the case with hospitalist. Will admit for further evaluation and treatment. Discharge Plan Departure Patient Disposition: Admitted As Inpatient Clinical Impression: Atrial fibrillation with RVR, Insulin dependent diabetes mellitus, Dyspnea on exertion Admit Date/Time: 08/26/22 23:01 Admit Provider: Lani Mcleod
--- NOTE | 2022-08-26 16:11 | DI.CT.S_ITS ---
PROCEDURE: CT ANGIO CHEST PE PROTOCOL INDICATIONS: sob TECHNIQUE: After the administration of intravenous contrast, 2 mm thick sections acquired from the pulmonary apices to the posterior costophrenic angles. 3-dimensional maximum intensity projection (MIP) coronal and sagittal reformats were then acquired through the thorax. For radiation dose reduction, the following was used: automated exposure control, adjustment of mA and/or kV according to patient size. COMPARISON: None. FINDINGS: Image quality: Excellent. Pulmonary arteries: Pulmonary arteries are normal in size, and demonstrate no intraluminal filling defects to suggest central pulmonary embolism. Lungs and pleura: Lungs are clear. [id number] right pleural effusion. Associated right basilar atelectasis. Central and peripheral airways are patent. Mediastinum: Top normal heart size. Moderate to severe coronary artery calcifications. No mediastinal or hilar adenopathy. Thoracic aorta is normal in caliber and enhancement. Esophagus is normal in caliber, without hiatal hernia. Bones and chest wall: No suspicious bony lesions. Ribs and thoracic spine appear intact throughout. Thyroid gland is unremarkable as visualized. No axillary or supraclavicular adenopathy. Left shoulder arthroplasty. Abdomen: Visualized upper abdominal solid organs appear normal in the early arterial phase of enhancement. IMPRESSION: 1. No evidence acute pulmonary emboli. 2. Mild to moderate right pleural effusion with associated right basilar atelectasis. 3. Top normal heart size, moderate to severe coronary artery calcifications. Dictated by: Connor Shearer M.D. on 08/26/2022 at 16:51 Approved by: Connor Shearer M.D. on 08/26/2022 at 16:54
[2022-08-26 16:15] LABS: Alanine Aminotransferase 188 IU/L (<50); Albumin 3.4 g/dL (3.5-5.0); Albumin Globulin Ratio 0.9 (1.0-2.8); Alkaline Phosphatase 123 U/L (38-126); Aspartate Aminotransferase 30 IU/L (17-59); BUN Creatinine Ratio 24.1 (6-22); Bilirubin Total 0.7 mg/dL (0.2-1.3); Blood Urea Nitrogen 32 mg/dL (9-20); Calcium 8.7 mg/dL (8.4-10.2); Carbon Dioxide 27 mmol/L (22-32); Chloride 105 mmol/L (98-107); Creatine Kinase 87 U/L (55-170); Estimated Glomerular Filt Rate 56 mL/min (>60); Globulin 3.7 g/dL (1.7-4.1); Glucose 100 mg/dL (80-110); HEMOLYSIS 17 (0-50); Lipase 134 U/L (23-300); Potassium 5.2 mmol/L (3.4-5.1); Sodium 140 mmol/L (137-145); Total Protein 7.1 g/dL (6.3-8.2)
[2022-08-26] MEDS: ALBUTEROL/IPRATROPIUM 3 ML AMPUL INH (16:25)
[2022-08-26 16:27] LABS: NT-proBNP (BNP-Adult 18+) 4410 pg/mL (<450); Troponin I 0.016 ng/mL (0.01-0.034)
[2022-08-26 17:07] LABS: Influenza A - CEPHEID Flu A NEGATIVE (NEGATIVE); Influenza B - CEPHEID Flu B NEGATIVE (NEGATIVE); Respiratory Syncytial Virus Negative (Negative)
[2022-08-26 17:10] LABS: COVID-19 CEPHEID 4-PLEX PCR POSITIVE (Negative)
[2022-08-26] MEDS: methylPREDNISolone 125 MG/2 ML VIAL IV (17:21)
[2022-08-26] MEDS: FUROSEMIDE 40 MG/4 ML VIAL IV (17:22)
[2022-08-26] MEDS: dilTIAZem 5 MG/ML SDV 10 MG IV (18:19)
[2022-08-26] MEDS: METOPROLOL IR 25 MG TABLET PO (19:51)
--- NOTE | 2022-08-26 23:11 | PM.HP.1 ---
History of Present Illness History of Present Illness Date Patient Seen: 08/26/22 Time Patient Seen: 23:00 Chief complaint: sob/sores on both legs Narrative: Logan Denton is a 77-year-old male with a history of atrial fibrillation, diabetes, congestive heart failure, COPD on home O2, coronary artery disease, presented to the ED on 08/26 with increased shortness of breath.? He states was driving to [place] and overnight it in [place] staying in a hotel room. He he stated he passed out in his hotel room and felt that he was ?impaled? against something on the bed frame. He passed out several times when approximately 7:00 a.m. he heard somebody walking down the [address] with his dog and started to yell. The person asked him if he needed to have the paramedics called and he said that yes he did need help and they were led into the room. He was admitted to [facility] [place] for 4 days for atrial fibrillation with RVR. I did review faxed notes from them and it appears that aside from his regular medications they also discharge him on oral digoxin. Per the hospital notes they stated he was supratherapeutic at an INR of 3.0 and it sounds like they may have withheld his warfarin because today he is actually subtherapeutic.Once discharged from the hospital he then drove a few days back to [facility] and arrived last night.? He has had ongoing shortness of breath mostly with exertion.? He feels like his AFib might be out of control again.? He says he was not in sinus rhythm when he was discharged but he used to have paroxysmal atrial fibrillation.? He occasionally has chest discomfort but is not really consistent.? He currently denies any chest palpitations.? He had COVID on August 07 and prior to leaving for [place] his PCP told him that he could come out of quarantine. However when he presented to the hospital in [place], he was positive for COVID and is positive currently. He is chronic ongoing lower extremity wounds.? He is [facility] by [facility].? They are weeping more and he states had an appointment to see them but never made it.? He denies any fever chills or cough. States his diabetes is under good control with an A1c of 6.2, denies any nausea vomiting, abdominal pain, dysuria but does have bouts of diarrhea altering needing with constipation which appears to be chronic. He does complain of numbing and tingling of his upper and lower extremities particularly the tips of his fingers and does endorse having a nonproductive cough. In the ED he was administered diltiazem, 40 mg of IV Lasix, he was initiated on IV steroid of Solu-Medrol 125 mg and was given a 1 time dose of metoprolol 25 mg. Chest x-ray was negative, due to shortness of breath CTA was ordered and reported a mild to moderate right pleural effusion with associated right basilar atelectasis but no pulmonary embolism. He is afebrile, blood pressure 131/88 his heart rate is 128 respiratory rate 22 oxygen saturation of 95% on room air he weighs 136 kg with a BMI of 38.1. He is mildly anemic with a hemoglobin and hematocrit of 9.9 and 31.4, his INR is 1.8 which is the therapeutic for him, potassium 5.2 creatinine 1.33 BUN 32 with a EGFR 56 his A1c is 7.3 ALT is 188 pro BNP is 4410 his troponin is within normal limits viral flu panel is negative but his COVID-19 PCR remains positive. FH: Documented below. Patient History Medical History Arthritis Asthma Benign tumor of adrenal gland Bilateral lower extremity edema BPH w urinary obs/LUTS Chronic pain CKD (chronic kidney disease), stage III COPD (chronic obstructive pulmonary disease) Heart murmur HTN (hypertension) Hyperlipidemia Lymphadenopathy Myocardial infarction Non-sustained ventricular tachycardia ALDAIR on CPAP Osteoarthritis Paroxysmal A-fib Pneumonia RBBB (right bundle branch block) Renal artery stenosis Renal calculus Status post placement of implantable loop recorder (~11/2016) Type 2 diabetes mellitus Surgical History History of arthroplasty of left knee (~2014) History of carpal tunnel release of both wrists (~2004) History of hemiarthroplasty of left shoulder (~2004) Hx of arthroscopy of left knee (~2008) Hx of cholecystectomy Hx of laminectomy Hx of shoulder surgery (~2007) S/P foot surgery, left Family & Social History Family History (Updated 08/27/22 @ 03:03 by SIM De Souza) Mother Myocardial infarction Father CVA (cerebral vascular accident) Myocardial infarction Sister Atrial fibrillation, chronic Status cardiac pacemaker Safety & Behavioral: Feels Safe in Current Yes Environment Tobacco & Substance use: Smoking Status Former smoker quit in the alcohol intake frequency holiday/special occasion Substance Use Type marijuana Meds Home Medications and Allergies Home Medications Medication Instructions Recorded Confirmed Type atorvastatin 40 mg tablet 40 mg PO QPM 11/28/18 11/30/18 History carvedilol 25 mg tablet 12.5 mg PO BID 11/28/18 08/26/22 History cholecalciferol (vitamin D3) 25 1,000 unit PO BID 11/28/18 11/30/18 History mcg (1,000 unit) tablet (Vitamin D3) clonidine HCl 0.2 mg tablet 0.2 mg PO BID 11/28/18 11/28/18 History insulin human U-100 NPH-regulr 22 unit SUBCUT BID 11/28/18 11/30/18 History 70-30 mix 100 unit/mL subcutaneous susp (Novolin 70/30 U-100 Insulin) losartan 100 mg tablet 100 mg PO DAILY 11/28/18 11/30/18 History magnesium oxide 400 mg PO BID 11/28/18 11/30/18 History multivitamin 1 cap PO DAILY 11/28/18 11/28/18 History spironolactone 25 mg tablet 25 mg PO DAILY 11/28/18 11/30/18 History terazosin 5 mg capsule 5 mg PO DAILY 11/28/18 11/30/18 History warfarin 5 mg tablet 5 mg PO QPM 11/28/18 11/30/18 History acetaminophen 325 mg tablet 975 mg PO TID #0 tabs 12/02/18 Rx oxycodone 5 mg tablet 5 mg PO Q3HR PRN Pain, Moderate 12/02/18 Rx (4-6) #0 tabs atorvastatin 40 mg tablet 40 mg PO BEDTIME 08/26/22 08/26/22 History Allergies Allergy/AdvReac Type Severity Reaction Status Date / Time adhesive tape AdvReac Severe SKIN Verified 08/26/22 15:05 TEARING - PAPER/SILK codeine AdvReac Severe DELAYED Verified 08/26/22 15:05 PURITIS w/ prolonged use amlodipine AdvReac Mild URINARY Verified 08/26/22 15:05 RETENTION, COUGH Review of Systems Review of Systems ROS: Yes All systems reviewed with the patient and are negative except as otherwise documented Exam Vital Signs (past 8 hours): - 08/26/22 15:17 08/26/22 15:18 08/26/22 15:18 Pulse Rate 111 H 120 H Respiratory Rate 15 Blood Pressure 151/82 H Pulse Oximetry 98 98 Oxygen Delivery Method 08/26/22 15:30 08/26/22 15:50 08/26/22 15:50 Pulse Rate 131 H 126 H Respiratory Rate 23 21 Blood Pressure 142/91 H Pulse Oximetry 99 99 Oxygen Delivery Method 08/26/22 16:00 08/26/22 16:00 08/26/22 16:10 Pulse Rate 123 H 120 H Respiratory Rate 20 24 Blood Pressure 153/72 H Pulse Oximetry 99 99 Oxygen Delivery Method 08/26/22 16:10 08/26/22 16:20 08/26/22 16:20 Pulse Rate 124 H Respiratory Rate 16 Blood Pressure 159/78 H 149/79 H Pulse Oximetry 99 Oxygen Delivery Method 08/26/22 16:28 08/26/22 16:30 08/26/22 16:31 Pulse Rate 146 H 113 H Respiratory Rate Blood Pressure Pulse Oximetry 97 95 Oxygen Delivery Method Room Air 08/26/22 16:31 08/26/22 17:00 08/26/22 17:30 Pulse Rate 129 H 126 H Respiratory Rate Blood Pressure 167/92 H Pulse Oximetry 99 100 Oxygen Delivery Method 08/26/22 18:19 08/26/22 18:00 08/26/22 18:30 Pulse Rate 127 H 123 H Respiratory Rate 24 Blood Pressure 167/92 H 137/59 L Pulse Oximetry 96 Oxygen Delivery Method 08/26/22 18:30 08/26/22 18:41 08/26/22 18:41 Pulse Rate 126 H 128 H Respiratory Rate 22 Blood Pressure 161/69 H Pulse Oximetry 98 96 Oxygen Delivery Method 08/26/22 18:50 08/26/22 18:50 08/26/22 19:00 Pulse Rate 123 H Respiratory Rate 20 Blood Pressure 153/95 H 164/82 H Pulse Oximetry 98 Oxygen Delivery Method 08/26/22 19:00 08/26/22 19:10 08/26/22 19:10 Pulse Rate 130 H 131 H Respiratory Rate 18 20 Blood Pressure 145/70 H Pulse Oximetry 97 96 Oxygen Delivery Method 08/26/22 19:20 08/26/22 19:20 08/26/22 19:30 Pulse Rate 129 H Respiratory Rate Blood Pressure 131/83 148/92 H Pulse Oximetry 97 Oxygen Delivery Method 08/26/22 19:30 08/26/22 19:41 08/26/22 19:41 Pulse Rate 132 H 134 H Respiratory Rate 24 Blood Pressure 153/102 H Pulse Oximetry 96 96 Oxygen Delivery Method 08/26/22 19:50 08/26/22 19:50 08/26/22 20:00 Pulse Rate 128 H Respiratory Rate 18 Blood Pressure 146/95 H 169/97 H Pulse Oximetry 96 Oxygen Delivery Method 08/26/22 20:00 08/26/22 20:10 08/26/22 20:10 Pulse Rate 126 H 124 H Respiratory Rate 22 21 Blood Pressure 178/101 H Pulse Oximetry 96 95 Oxygen Delivery Method 08/26/22 20:20 08/26/22 20:20 08/26/22 20:30 Pulse Rate 127 H Respiratory Rate 21 Blood Pressure 169/84 H 146/81 H Pulse Oximetry 95 Oxygen Delivery Method 08/26/22 20:30 08/26/22 20:40 08/26/22 20:40 Pulse Rate 136 H 125 H Respiratory Rate 23 21 Blood Pressure 141/90 H Pulse Oximetry 95 94 Oxygen Delivery Method 08/26/22 20:50 08/26/22 20:50 08/26/22 21:00 Pulse Rate 124 H Respiratory Rate 18 Blood Pressure 175/111 H 187/94 H Pulse Oximetry 94 Oxygen Delivery Method 08/26/22 21:00 08/26/22 21:10 08/26/22 21:10 Pulse Rate 127 H 124 H Respiratory Rate Blood Pressure 201/87 H Pulse Oximetry 96 95 Oxygen Delivery Method 08/26/22 21:21 08/26/22 21:21 08/26/22 21:30 Pulse Rate 129 H 124 H Respiratory Rate 23 23 Blood Pressure 184/78 H Pulse Oximetry 94 95 Oxygen Delivery Method 08/26/22 21:31 08/26/22 21:31 Pulse Rate 134 H Respiratory Rate Blood Pressure 173/74 H Pulse Oximetry 95 Oxygen Delivery Method Oxygen Delivery Method Room Air Narrative Exam Narrative: Gen: Alert, oriented, morbidly obese 77 y.o. male, talkative HEENT: normocephalic, atraumatic, conjunctiva clear, sclera non-icteric, oral mucosa pink and moist Neck: supple, full ROM, no JVD, trachea is midline Resp: Lungs CTA with restricted breathing, non-labored breathing CV: Tachy and irregular, no murmur or rubs Abd: obese, soft, non-tender, normoactive BTs Skin: no lesions or rashes, dry and intact Neuro: Alert and oriented X 4 w/no focal deficits. Speech clear and coherent. Extremities: moves all 4 extremities, is ambulatory, negative Allyssa?s sign Psyche: normal mood and affect. Objective Labs Result Diagrams: 08/26/22 15:45 08/26/22 15:45 Labs: Laboratory Results - last 24 hr 08/26/22 08/26/22 08/26/22 15:45 15:45 15:45 WBC 5.9 RBC 3.54 L Hgb 9.9 L Hct 31.4 L MCV 88.8 MCH 28.0 MCHC 31.6 RDW 16.6 H Plt Count 261 Neut % (Auto) 67.5 Lymph % (Auto) 16.5 L Douglas % (Auto) 9.4 Eos % (Auto) 6.0 H Baso % (Auto) 0.6 Neut # (Auto) 4000 Lymph # (Auto) 1000 L Douglas # (Auto) 600 Eos # (Auto) 400 Baso # (Auto) 0 PT 20.6 H INR 1.8 H APTT 31 Sodium 140 Potassium 5.2 H Chloride 105 Carbon Dioxide 27 BUN 32 H Creatinine 1.33 H Estimated GFR 56 L BUN/Creatinine Ratio 24.1 H Glucose 100 Calcium 8.7 Total Bilirubin 0.7 AST 30 ALT 188 H Alkaline Phosphatase 123 Total Creatine Kinase 87 CK-MB (CK-2) TNP CK-MB (CK-2) Rel Index TNP Troponin I 0.016 NT-Pro-B Natriuret Pep 4410 H Total Protein 7.1 Albumin 3.4 L Globulin 3.7 Albumin/Globulin Ratio 0.9 L Lipase 134 SARS-CoV-2 (PCR) Influenza A (RT-PCR) Influenza B (RT-PCR) RSV (PCR) 08/26/22 16:10 WBC RBC Hgb Hct MCV MCH MCHC RDW Plt Count Neut % (Auto) Lymph % (Auto) Douglas % (Auto) Eos % (Auto) Baso % (Auto) Neut # (Auto) Lymph # (Auto) Douglas # (Auto) Eos # (Auto) Baso # (Auto) PT INR APTT Sodium Potassium Chloride Carbon Dioxide BUN Creatinine Estimated GFR BUN/Creatinine Ratio Glucose Calcium Total Bilirubin AST ALT Alkaline Phosphatase Total Creatine Kinase CK-MB (CK-2) CK-MB (CK-2) Rel Index Troponin I NT-Pro-B Natriuret Pep Total Protein Albumin Globulin Albumin/Globulin Ratio Lipase SARS-CoV-2 (PCR) Positive H Influenza A (RT-PCR) Flu a negative Influenza B (RT-PCR) Flu b negative RSV (PCR) Negative Assessment & Plan Assessment & Plan narrative: Logan Denton is admitted for atrial fibrillation with RVR, shortness of breath associated with COVID-19. Atrial fibrillation with RVR, acute, present on admission. He is admitted to the inpatient floor with telemetry Per the patient it seems that he had not filled his digoxin and this was admitted hard to him in the ED and will receive a full dose tomorrow morning. He thinks he is had an echocardiogram within the last month, he sees Dr. Lei at [place] and we will contact her in the morning to let her know that he is 1 here and to obtain any relevant notes and results, therefore I have not ordered an echocardiogram. TSH is pending Possible COPD exacerbation, acute, present on admission He will receive albuterol and DuoNebs Subtherapeutic anticoagulation, present on admission INR was 1.8 He takes warfarin 2.5 mg on Wednesday and Wednesday and 5 mg on Wednesday and Wednesday. He will be given a 1 time dose of 5 mg today. Diabetes type 2 suboptimally controlled A1c is currently 7.3 Carb controlled diet with low dose insulin correctional scale It is possible his glucose is might be high due to the steroids he is receiving and may need to be started on subQ glargine VTE Prophylaxis: Wells risk score 1 point X Bilateral SCDs Patient is currently anticoagulated on warfarin. Patient is admitted to the inpatient service due to the severity of disease, risks of further disease progression and this stay is expected to exceed 2 midnights. FEN: IV fluids: Saline lock, diet: Carb controlled diet, labs: CBC, C/BMP, liver enzymes, Mag, PT/INR Consultants none Dispo: Admitted to inpatient medical unit. Probable DC to home Code status: Full code as discussed with the patient who identifies son as his surrogate and POA. [X] I have utilized all available immediate resources to obtain, update, or review of the patient's current medications VTE Deep Vein Thrombosis/Pulmonary Embolism Present on Admission: No MIPS - Admit I confirm the patient?s Advance Care Plan is present, Code status is documented, Surrogate decision maker is in patient?s record: Yes MIPS - DC The patient has current or prior documentation of left ventricular ejection fraction (LVEF) less than 40%, or moderate or severely depressed left ventricular systolic function.: No COVID-19 COVID-19 status: Positive Result date/Date tested (Pos, Neg/Pending): 08/26/22 Scores CHADS-VASc Congestive heart failure: yes Hypertension: yes Age 75 years or older: yes Diabetes mellitus: yes Stroke, TIA, or TE: no Vascular disease: yes Age 65 to 74 years: no Sex category (female): Male CHADS-VASc Score: 6 Wells' Criteria for PE Clinical signs and symptoms of DVT: No PE is #1 Dx or equally likely: No Heart rate > 100: Yes Immobilization at least 3 days or surg in previous 4 weeks: No History of PE or DVT: No Hemoptysis: No Malignancy w/Treatment within 6 months or palliative: No Wells' PE Score total: 1.5
[2022-08-26 23:22] LABS: Magnesium 1.7 mg/dL (1.6-2.3)
[2022-08-27] VITALS (32 sets, daily range): BP systolic 125–167; BP diastolic 48–112; PULSE 122–144; RESP 19–27; TEMP 37–37.3; O2SAT 93–97; BMI 40.6
[2022-08-27 00:04] LABS: Digoxin 1.2 ng/mL (0.8-2.0)
[2022-08-27 00:06] LABS: Troponin I 0.012 ng/mL (0.01-0.034)
[2022-08-27 00:33] LABS: Hemoglobin A1C% w Est Avg Glu 7.3 % (4.0-6.0)
[2022-08-27] MEDS: ATORVASTATIN 20 MG TABLET 40 MG PO ×2 (00:56→20:57)
[2022-08-27] MEDS: WARFARIN 5 MG TABLET PO (01:00)
[2022-08-27] MEDS: DIGOXIN 0.125 MG TABLET 0.25 MG PO ×2 (01:01→17:03)
[2022-08-27] MEDS: carvediloL 12.5 MG TABLET PO ×3 (01:01→20:56)
--- NOTE | 2022-08-27 04:22 | PC.NURSE ---
Hospitalist,Aniya,was given update on his vital signs and heart rate and rhythm.No new orders received.
[2022-08-27 06:07] LABS: Add Manual Diff / Slide Review NO; Basophils Absolute Auto 0 /uL (0-100); Basophils Percent Auto 0.2 % (0-2); Eosinophils Absolute Auto 0 /uL (0-450); Eosinophils Percent Auto 0.1 % (2-4); Hematocrit 29.7 % (41-53); Hemoglobin 9.7 g/dL (13.5-17.5); Lymphocytes Absolute Auto 400 /uL (1100-4500); Lymphocytes Percent Auto 8.5 % (25-40); Mean Corpuscular HGB Conc 32.7 % (30-36); Mean Corpuscular Hemoglobin 28.6 PG (26-34); Mean Corpuscular Volume 87.5 fL (80-100); Monocytes Absolute Auto 100 /uL (0-900); Monocytes Percent Auto 1.2 % (3-14); Neutrophils Absolute Auto 4300 /uL (1500-7000); Platelet Count 235 X10^3/uL (150-400); Red Cell Distribution Width 15.9 % (11.6-14.8); White Blood Cell Count 4.8 X10^3/uL (4.5-11.0)
[2022-08-27 06:17] LABS: INR 2.1 (0.9-1.3); Prothrombin Time 23.7 SECONDS (10.1-12.7)
[2022-08-27 06:19] LABS: Alanine Aminotransferase 153 IU/L (<50); Albumin 3.3 g/dL (3.5-5.0); Albumin Globulin Ratio 0.9 (1.0-2.8); Alkaline Phosphatase 98 U/L (38-126); Aspartate Aminotransferase 25 IU/L (17-59); BUN Creatinine Ratio 23.4 (6-22); Bilirubin Total 0.8 mg/dL (0.2-1.3); Blood Urea Nitrogen 33 mg/dL (9-20); Calcium 8.5 mg/dL (8.4-10.2); Carbon Dioxide 26 mmol/L (22-32); Chloride 103 mmol/L (98-107); Estimated Glomerular Filt Rate 52 mL/min (>60); Globulin 3.6 g/dL (1.7-4.1); Glucose 239 mg/dL (80-110); HEMOLYSIS < 15 (0-50); Potassium 5.2 mmol/L (3.4-5.1); Sodium 136 mmol/L (137-145); Total Protein 6.9 g/dL (6.3-8.2)
[2022-08-27 06:28] LABS: Troponin I < 0.012 ng/mL (0.01-0.034)
[2022-08-27 06:47] LABS: Thyroid Stimulating Hormone 0.802 uIU/mL (0.47-4.68)
[2022-08-27] MEDS: INSULIN LISPRO 100 UNIT/ML 3ML VIAL SUBCUT ×3 (08:18→17:07)
--- NOTE | 2022-08-27 11:25 | P.PN_ITS ---
Subjective Subjective Date Patient Seen: 08/27/22 Interval history: Denies shortness of breath at rest, but he hasn't ambulated. Rate remains uncontrolled 120s - 130s. Exam Vital Signs (past 8 hours): - 08/27/22 03:30 08/27/22 04:00 08/27/22 09:40 Pulse Rate 125 H 127 H 127 H Respiratory Rate 22 23 Blood Pressure 130/87 130/69 Pulse Oximetry 94 94 Oxygen Delivery Method 08/27/22 04:30 08/27/22 05:00 08/27/22 05:30 Pulse Rate 122 H 127 H 127 H Respiratory Rate 26 H 22 Blood Pressure Pulse Oximetry 94 93 94 Oxygen Delivery Method 08/27/22 06:00 08/27/22 06:30 08/27/22 07:00 Pulse Rate 128 H 132 H 128 H Respiratory Rate 22 21 25 H Blood Pressure Pulse Oximetry 94 94 93 Oxygen Delivery Method 08/27/22 07:30 08/27/22 08:00 08/27/22 08:30 Pulse Rate 132 H 129 H 142 H Respiratory Rate 26 H 21 27 H Blood Pressure Pulse Oximetry 94 95 94 Oxygen Delivery Method 08/27/22 09:00 08/27/22 09:30 Pulse Rate 132 H 130 H Respiratory Rate 20 25 H Blood Pressure 130/69 Pulse Oximetry 94 93 Oxygen Delivery Method Room Air Oxygen Delivery Method Room Air Narrative Exam Narrative: Gen: Alert, oriented, morbidly obese 77 y.o. male, talkative HEENT: normocephalic, atraumatic, conjunctiva clear, sclera non-icteric, oral mucosa pink and moist Neck: supple, full ROM, no JVD, trachea is midline Resp: Lungs CTA with restricted breathing, non-labored breathing CV: Tachy and irregularly irregular, no murmur or rubs Abd: obese, soft, non-tender, normoactive BTs Skin: no lesions or rashes, dry and intact Neuro: Alert and oriented X 4 w/no focal deficits. Speech clear and coherent. Extremities: trace bilateral lower extremity non-pitting edema with venous stasis and chronic venous stasis ulcerations R > L, no erythema or induration Psyche: normal mood and affect. Objective Labs Result Diagrams: 08/27/22 05:44 08/27/22 05:44 Labs: Laboratory Results - last 24 hr 08/26/22 08/26/22 08/26/22 15:45 15:45 15:45 WBC 5.9 RBC 3.54 L Hgb 9.9 L Hct 31.4 L MCV 88.8 MCH 28.0 MCHC 31.6 RDW 16.6 H Plt Count 261 Neut % (Auto) 67.5 Lymph % (Auto) 16.5 L Merrick % (Auto) 9.4 Eos % (Auto) 6.0 H Baso % (Auto) 0.6 Neut # (Auto) 4000 Lymph # (Auto) 1000 L Merrick # (Auto) 600 Eos # (Auto) 400 Baso # (Auto) 0 PT 20.6 H INR 1.8 H APTT 31 Sodium 140 Potassium 5.2 H Chloride 105 Carbon Dioxide 27 BUN 32 H Creatinine 1.33 H Estimated GFR 56 L BUN/Creatinine Ratio 24.1 H Glucose 100 Hemoglobin A1c Calcium 8.7 Magnesium Total Bilirubin 0.7 AST 30 ALT 188 H Alkaline Phosphatase 123 Total Creatine Kinase 87 CK-MB (CK-2) TNP CK-MB (CK-2) Rel Index TNP Troponin I 0.016 NT-Pro-B Natriuret Pep 4410 H Total Protein 7.1 Albumin 3.4 L Globulin 3.7 Albumin/Globulin Ratio 0.9 L Lipase 134 TSH Digoxin SARS-CoV-2 (PCR) Influenza A (RT-PCR) Influenza B (RT-PCR) RSV (PCR) 08/26/22 08/26/22 08/26/22 15:45 15:45 15:45 WBC RBC Hgb Hct MCV MCH MCHC RDW Plt Count Neut % (Auto) Lymph % (Auto) Merrick % (Auto) Eos % (Auto) Baso % (Auto) Neut # (Auto) Lymph # (Auto) Merrick # (Auto) Eos # (Auto) Baso # (Auto) PT INR APTT Sodium Potassium Chloride Carbon Dioxide BUN Creatinine Estimated GFR BUN/Creatinine Ratio Glucose Hemoglobin A1c 7.3 H Calcium Magnesium 1.7 Total Bilirubin AST ALT Alkaline Phosphatase Total Creatine Kinase CK-MB (CK-2) CK-MB (CK-2) Rel Index Troponin I NT-Pro-B Natriuret Pep Total Protein Albumin Globulin Albumin/Globulin Ratio Lipase TSH Digoxin 1.2 SARS-CoV-2 (PCR) Influenza A (RT-PCR) Influenza B (RT-PCR) RSV (PCR) 08/26/22 08/26/22 08/27/22 16:10 23:37 05:44 WBC 4.8 RBC 3.40 L Hgb 9.7 L Hct 29.7 L MCV 87.5 MCH 28.6 MCHC 32.7 RDW 15.9 H Plt Count 235 Neut % (Auto) 90.0 H D Lymph % (Auto) 8.5 L Merrick % (Auto) 1.2 L Eos % (Auto) 0.1 L Baso % (Auto) 0.2 Neut # (Auto) 4300 Lymph # (Auto) 400 L Merrick # (Auto) 100 Eos # (Auto) 0 Baso # (Auto) 0 PT INR APTT Sodium Potassium Chloride Carbon Dioxide BUN Creatinine Estimated GFR BUN/Creatinine Ratio Glucose Hemoglobin A1c Calcium Magnesium Total Bilirubin AST ALT Alkaline Phosphatase Total Creatine Kinase CK-MB (CK-2) CK-MB (CK-2) Rel Index Troponin I 0.012 NT-Pro-B Natriuret Pep Total Protein Albumin Globulin Albumin/Globulin Ratio Lipase TSH Digoxin SARS-CoV-2 (PCR) Positive H Influenza A (RT-PCR) Flu a negative Influenza B (RT-PCR) Flu b negative RSV (PCR) Negative 08/27/22 08/27/22 08/27/22 05:44 05:44 05:44 WBC RBC Hgb Hct MCV MCH MCHC RDW Plt Count Neut % (Auto) Lymph % (Auto) Merrick % (Auto) Eos % (Auto) Baso % (Auto) Neut # (Auto) Lymph # (Auto) Merrick # (Auto) Eos # (Auto) Baso # (Auto) PT 23.7 H INR 2.1 H APTT Sodium 136 L Potassium 5.2 H Chloride 103 Carbon Dioxide 26 BUN 33 H Creatinine 1.41 H Estimated GFR 52 L BUN/Creatinine Ratio 23.4 H Glucose 239 H D Hemoglobin A1c Calcium 8.5 Magnesium Total Bilirubin 0.8 AST 25 ALT 153 H Alkaline Phosphatase 98 Total Creatine Kinase CK-MB (CK-2) CK-MB (CK-2) Rel Index Troponin I NT-Pro-B Natriuret Pep Total Protein 6.9 Albumin 3.3 L Globulin 3.6 Albumin/Globulin Ratio 0.9 L Lipase TSH 0.802 Digoxin SARS-CoV-2 (PCR) Influenza A (RT-PCR) Influenza B (RT-PCR) RSV (PCR) 08/27/22 05:44 WBC RBC Hgb Hct MCV MCH MCHC RDW Plt Count Neut % (Auto) Lymph % (Auto) Merrick % (Auto) Eos % (Auto) Baso % (Auto) Neut # (Auto) Lymph # (Auto) Merrick # (Auto) Eos # (Auto) Baso # (Auto) PT INR APTT Sodium Potassium Chloride Carbon Dioxide BUN Creatinine Estimated GFR BUN/Creatinine Ratio Glucose Hemoglobin A1c Calcium Magnesium Total Bilirubin AST ALT Alkaline Phosphatase Total Creatine Kinase CK-MB (CK-2) CK-MB (CK-2) Rel Index Troponin I < 0.012 NT-Pro-B Natriuret Pep Total Protein Albumin Globulin Albumin/Globulin Ratio Lipase TSH Digoxin SARS-CoV-2 (PCR) Influenza A (RT-PCR) Influenza B (RT-PCR) RSV (PCR) PFSH Medical History Arthritis Asthma Benign tumor of adrenal gland Bilateral lower extremity edema BPH w urinary obs/LUTS Chronic pain CKD (chronic kidney disease), stage III COPD (chronic obstructive pulmonary disease) Heart murmur HTN (hypertension) Hyperlipidemia Lymphadenopathy Myocardial infarction Non-sustained ventricular tachycardia ALDAIR on CPAP Osteoarthritis Paroxysmal A-fib Pneumonia RBBB (right bundle branch block) Renal artery stenosis Renal calculus Status post placement of implantable loop recorder (~11/2016) Type 2 diabetes mellitus Surgical History History of arthroplasty of left knee (~2014) History of carpal tunnel release of both wrists (~2004) History of hemiarthroplasty of left shoulder (~2004) Hx of arthroscopy of left knee (~2008) Hx of cholecystectomy Hx of laminectomy Hx of shoulder surgery (~2007) S/P foot surgery, left Family History (Updated 08/27/22 @ 03:03 by SIM De Souza) Mother Myocardial infarction Father CVA (cerebral vascular accident) Myocardial infarction Sister Atrial fibrillation, chronic Status cardiac pacemaker Social History household members: significant other Smoking Status: Former smoker alcohol intake: current Assessment & Plan Assessment & Plan narrative: Logan Denton is admitted for atrial fibrillation with RVR, shortness of breath associated with COVID-19. Atrial fibrillation with RVR, acute, present on admission with possible acute he art failure, unknown EF. * unclear if he started digoxin therapy that was to continue after his hospi talization recently, will resume 250 mcg daily * check digoxin level in the morning * continue home coreg, adjust as necessary and as tolerated with BP, losartan is on hold currently to optimize rate control, was also supposed to be on diltiazem 240 mg daily per records, will resume but at 60 mg BID initially. * history of ablation, reports recent TTE but not currently available for review. Will seek out recent records from his cardiology group. No discharge summary from recent hospitalization. * suspect his symptoms are currently related to RVR rather than COPD, possible slight volume overload given elevated proBNP. * continue lasix 40 mg IV BID for now COPD without exacerbation, acute * Continue albuterol and DuoNebs Subtherapeutic anticoagulation, present on admission * INR was 1.8 * He takes warfarin 2.5 mg on Wednesday and Wednesday and 5 mg on Wednesday and Wednesday. Will resume. Diabetes type 2 suboptimally controlled * A1c is currently 7.3 * Carb controlled diet with low dose insulin correctional scale * It is possible his glucose is might be high due to the steroids he is receiving and may need to be started on subQ glargine HTN - hold clonidine and losartan in favor of rate control agents at this time. COVID- 19 infection - continue supportive care, do not believe dyspnea is related to COVID CKD stage III - baseline creatinine per recent hospitalization is 1.4, where patient is today. Continue to monitor. Code: Full, surrogate is patient's son Dispo: likely home once rate is optimally controlled. COVID-19 COVID-19 status: Positive Result date/Date tested (Pos, Neg/Pending): 08/26/22 Time Spent With Patient Critical Care time: I spent a total of [] minutes of critical care time on this patient's care today; this time is exclusive of procedural time.
[2022-08-27] MEDS: MAGNESIUM CHLORIDE 64 MG TABLET 128 MG PO (12:53)
[2022-08-27] MEDS: FUROSEMIDE 40 MG/4 ML VIAL IV ×2 (12:54→17:46)
[2022-08-27] MEDS: dilTIAZem SR 60 MG PO ×2 (13:20→16:58)
[2022-08-27] MEDS: WARFARIN 5 MG TABLET 2.5 MG PO (17:03)
[2022-08-27] MEDS: INSULIN GLARGINE 100 UNIT/ML 3ML PEN 10 UNIT SUBCUT (21:03)
[2022-08-28] VITALS (10 sets, daily range): BP systolic 115–142; BP diastolic 46–88; PULSE 83–146; RESP 16–18; TEMP 36.1–36.8; O2SAT 94–96
[2022-08-28 04:53] LABS: Add Manual Diff / Slide Review NO; Basophils Absolute Auto 0 /uL (0-100); Basophils Percent Auto 0.3 % (0-2); Eosinophils Absolute Auto 0 /uL (0-450); Eosinophils Percent Auto 0.1 % (2-4); Hematocrit 29.5 % (41-53); Hemoglobin 9.6 g/dL (13.5-17.5); Lymphocytes Absolute Auto 1000 /uL (1100-4500); Lymphocytes Percent Auto 10.3 % (25-40); Mean Corpuscular HGB Conc 32.5 % (30-36); Mean Corpuscular Hemoglobin 28.3 PG (26-34); Mean Corpuscular Volume 87.2 fL (80-100); Monocytes Absolute Auto 600 /uL (0-900); Monocytes Percent Auto 6.6 % (3-14); Neutrophils Absolute Auto 8000 /uL (1500-7000); Neutrophils Percent Auto 82.7 % (50-75); Platelet Count 245 X10^3/uL (150-400); Red Blood Cell Count 3.38 X10^6/uL (4.5-5.9); Red Cell Distribution Width 16.1 % (11.6-14.8); White Blood Cell Count 9.7 X10^3/uL (4.5-11.0)
[2022-08-28 05:02] LABS: INR 2.8 (0.9-1.3); Prothrombin Time 32.3 SECONDS (10.1-12.7)
[2022-08-28 05:05] LABS: BUN Creatinine Ratio 29.3 (6-22); Blood Urea Nitrogen 46 mg/dL (9-20); Carbon Dioxide 30 mmol/L (22-32); Chloride 100 mmol/L (98-107); Estimated Glomerular Filt Rate 46 mL/min (>60); HEMOLYSIS < 15 (0-50); Potassium 4.9 mmol/L (3.4-5.1); Sodium 136 mmol/L (137-145)
[2022-08-28 05:06] LABS: Alanine Aminotransferase 122 IU/L (<50); Albumin 3.3 g/dL (3.5-5.0); Albumin Globulin Ratio 0.9 (1.0-2.8); Alkaline Phosphatase 94 U/L (38-126); Aspartate Aminotransferase 23 IU/L (17-59); Bilirubin Total 0.6 mg/dL (0.2-1.3); Calcium 8.5 mg/dL (8.4-10.2); Globulin 3.6 g/dL (1.7-4.1); Glucose 128 mg/dL (80-110); Magnesium 1.7 mg/dL (1.6-2.3); Total Protein 6.9 g/dL (6.3-8.2)
[2022-08-28 05:19] LABS: Digoxin 1.2 ng/mL (0.8-2.0)
[2022-08-28] MEDS: FUROSEMIDE 40 MG/4 ML VIAL IV ×2 (06:32→18:04)
[2022-08-28] MEDS: dilTIAZem SR 60 MG PO (09:25)
[2022-08-28] MEDS: carvediloL 12.5 MG TABLET PO ×2 (09:25→22:21)
[2022-08-28] MEDS: MAGNESIUM CHLORIDE 64 MG TABLET 128 MG PO (09:25)
--- NOTE | 2022-08-28 11:39 | PC.NURSE ---
HR maintaining in 110s-140s, BP 120/53 2hrs after morning med administration, pt states he can feel it in his chest but is otherwise asymptomatic. Dr Queen informed, will adjust medications.
[2022-08-28] MEDS: ACETAMINOPHEN 325 MG TABLET 650 MG PO (12:32)
[2022-08-28] MEDS: INSULIN LISPRO 100 UNIT/ML 3ML VIAL SUBCUT ×2 (12:46→17:49)
[2022-08-28] MEDS: DIGOXIN 500 MCG/2 ML AMPUL 250 MCG IV (16:04)
[2022-08-28] MEDS: DIGOXIN 0.125 MG TABLET 0.25 MG PO (17:50)
[2022-08-28] MEDS: WARFARIN 5 MG TABLET PO (17:50)
[2022-08-28] MEDS: dilTIAZem 30 MG TABLET 90 MG PO (17:53)
--- NOTE | 2022-08-28 18:55 | P.PN_ITS ---
Subjective Subjective Date Patient Seen: 08/28/22 Time Patient Seen: 08:00 Interval history: He feels short of breath when ambulating. He feels fluttering in his chest with tachycardia. Exam Vital Signs (past 8 hours): - 08/28/22 11:33 08/28/22 16:04 08/28/22 16:25 Pulse Rate 146 H 106 H 110 H Blood Pressure 120/53 L 128/88 121/75 Pulse Oximetry 96 08/28/22 17:50 08/28/22 17:53 Pulse Rate 105 H 105 H Blood Pressure 142/67 H 142/67 H Pulse Oximetry Oxygen Delivery Method Room Air Oxygen Flow Rate 0 Narrative Exam Narrative: Gen: no acute distress Resp:clear bilaterally but diminished CV: Tachy and irregularly irregular, no murmur or rubs Abd: obese, soft, non-tender, normoactive BTs Extremities: trace bilateral lower extremity non-pitting edema with venous stasis and chronic venous stasis ulcerations R > L, no erythema or induration Objective Labs Result Diagrams: 08/28/22 04:45 08/28/22 04:45 Labs: Laboratory Results - last 24 hr 08/28/22 08/28/22 08/28/22 04:45 04:45 04:45 WBC 9.7 D RBC 3.38 L Hgb 9.6 L Hct 29.5 L MCV 87.2 MCH 28.3 MCHC 32.5 RDW 16.1 H Plt Count 245 Neut % (Auto) 82.7 H Lymph % (Auto) 10.3 L Hidalgo % (Auto) 6.6 Eos % (Auto) 0.1 L Baso % (Auto) 0.3 Neut # (Auto) 8000 H Lymph # (Auto) 1000 L Hidalgo # (Auto) 600 Eos # (Auto) 0 Baso # (Auto) 0 PT 32.3 H D INR 2.8 H Sodium 136 L Potassium 4.9 Chloride 100 Carbon Dioxide 30 BUN 46 H Creatinine 1.57 H Estimated GFR 46 L BUN/Creatinine Ratio 29.3 H Glucose 128 H D Calcium 8.5 Magnesium Total Bilirubin 0.6 AST 23 ALT 122 H Alkaline Phosphatase 94 Total Protein 6.9 Albumin 3.3 L Globulin 3.6 Albumin/Globulin Ratio 0.9 L Digoxin 08/28/22 08/28/22 04:45 04:45 WBC RBC Hgb Hct MCV MCH MCHC RDW Plt Count Neut % (Auto) Lymph % (Auto) Hidalgo % (Auto) Eos % (Auto) Baso % (Auto) Neut # (Auto) Lymph # (Auto) Hidalgo # (Auto) Eos # (Auto) Baso # (Auto) PT INR Sodium Potassium Chloride Carbon Dioxide BUN Creatinine Estimated GFR BUN/Creatinine Ratio Glucose Calcium Magnesium 1.7 Total Bilirubin AST ALT Alkaline Phosphatase Total Protein Albumin Globulin Albumin/Globulin Ratio Digoxin 1.2 [facility] Medical History Arthritis Asthma Benign tumor of adrenal gland Bilateral lower extremity edema BPH w urinary obs/LUTS Chronic pain CKD (chronic kidney disease), stage III COPD (chronic obstructive pulmonary disease) Heart murmur HTN (hypertension) Hyperlipidemia Lymphadenopathy Myocardial infarction Non-sustained ventricular tachycardia ALDAIR on CPAP Osteoarthritis Paroxysmal A-fib Pneumonia RBBB (right bundle branch block) Renal artery stenosis Renal calculus Status post placement of implantable loop recorder (~11/2016) Type 2 diabetes mellitus Surgical History History of arthroplasty of left knee (~2014) History of carpal tunnel release of both wrists (~2004) History of hemiarthroplasty of left shoulder (~2004) Hx of arthroscopy of left knee (~2008) Hx of cholecystectomy Hx of laminectomy Hx of shoulder surgery (~2007) S/P foot surgery, left Family History (Updated 08/27/22 @ 03:03 by SIM De Souza) Mother Myocardial infarction Father CVA (cerebral vascular accident) Myocardial infarction Sister Atrial fibrillation, chronic Status cardiac pacemaker Social History household members: significant other Smoking Status: Former smoker alcohol intake: current Assessment & Plan Assessment & Plan narrative: Logan Denton is admitted for atrial fibrillation with RVR, shortness of breath associated with COVID-19. Atrial fibrillation with RVR, acute, present on admission with possible acute heart failure, unknown EF. * continue digoxin * given one dose IV dig on 08/28 for additional rate control * check digoxin level in the morning * continue coreg, increase diltiazem * history of ablation, reports recent TTE but not currently available for review. Will seek out recent records from his cardiology group. No discharge summary from recent hospitalization. * suspect his symptoms are currently related to RVR rather than COPD, possible slight volume overload given elevated proBNP. * switch to oral lasix COPD without exacerbation, acute * Continue albuterol and DuoNebs Subtherapeutic anticoagulation, present on admission * INR was 1.8 * He takes warfarin 2.5 mg on Wednesday and Wednesday and 5 mg on Wednesday and Wednesday. Will resume. Diabetes type 2 suboptimally controlled * A1c is currently 7.3 * Carb controlled diet with low dose insulin correctional scale * It is possible his glucose is might be high due to the steroids he is receiving and may need to be started on subQ glargine HTN - hold clonidine and losartan in favor of rate control agents at this time. COVID- 19 infection - continue supportive care, do not believe dyspnea is related to COVID CKD stage III - baseline creatinine per recent hospitalization is 1.4, where patient is today. Continue to monitor. Code: Full, surrogate is patient's son Dispo: likely home once rate is optimally controlled. COVID-19 COVID-19 status: Positive Result date/Date tested (Pos, Neg/Pending): 08/26/22 Time Spent With Patient Critical Care time: I spent a total of [] minutes of critical care time on this patient's care today; this time is exclusive of procedural time. Quality VTE Deep Vein Thrombosis/Pulmonary Embolism Present on Admission: No
[2022-08-28] MEDS: ATORVASTATIN 20 MG TABLET 40 MG PO (22:21)
[2022-08-28] MEDS: INSULIN GLARGINE 100 UNIT/ML 3ML PEN 10 UNIT SUBCUT (22:22)
[2022-08-29] VITALS (8 sets, daily range): BP systolic 105–147; BP diastolic 62–80; PULSE 85–114; RESP 16–18; TEMP 36.3–37.1; O2SAT 93–95
[2022-08-29] MEDS: dilTIAZem 30 MG TABLET 90 MG PO ×3 (00:42→12:39)
[2022-08-29 07:11] LABS: Add Manual Diff / Slide Review NO; Basophils Absolute Auto 100 /uL (0-100); Basophils Percent Auto 0.7 % (0-2); Eosinophils Absolute Auto 100 /uL (0-450); Eosinophils Percent Auto 1.1 % (2-4); Hematocrit 32.4 % (41-53); Hemoglobin 10.4 g/dL (13.5-17.5); Lymphocytes Absolute Auto 1300 /uL (1100-4500); Lymphocytes Percent Auto 14.8 % (25-40); Mean Corpuscular HGB Conc 32.1 % (30-36); Mean Corpuscular Hemoglobin 27.8 PG (26-34); Mean Corpuscular Volume 86.6 fL (80-100); Monocytes Absolute Auto 600 /uL (0-900); Monocytes Percent Auto 7.6 % (3-14); Neutrophils Absolute Auto 6500 /uL (1500-7000); Neutrophils Percent Auto 75.8 % (50-75); Platelet Count 266 X10^3/uL (150-400); Red Blood Cell Count 3.74 X10^6/uL (4.5-5.9); Red Cell Distribution Width 15.9 % (11.6-14.8); White Blood Cell Count 8.6 X10^3/uL (4.5-11.0)
[2022-08-29 07:18] LABS: INR 2.6 (0.9-1.3); Prothrombin Time 30.3 SECONDS (10.1-12.7)
[2022-08-29 07:36] LABS: Alanine Aminotransferase 108 IU/L (<50); Albumin 3.4 g/dL (3.5-5.0); Albumin Globulin Ratio 0.9 (1.0-2.8); Alkaline Phosphatase 99 U/L (38-126); Aspartate Aminotransferase 30 IU/L (17-59); BUN Creatinine Ratio 31.4 (6-22); Bilirubin Total 0.6 mg/dL (0.2-1.3); Blood Urea Nitrogen 48 mg/dL (9-20); Calcium 8.7 mg/dL (8.4-10.2); Carbon Dioxide 32 mmol/L (22-32); Chloride 98 mmol/L (98-107); Estimated Glomerular Filt Rate 47 mL/min (>60); Globulin 3.6 g/dL (1.7-4.1); Glucose 132 mg/dL (80-110); HEMOLYSIS < 15 (0-50); Potassium 4.6 mmol/L (3.4-5.1); Sodium 137 mmol/L (137-145)
[2022-08-29 07:38] LABS: Magnesium 1.6 mg/dL (1.6-2.3)
[2022-08-29] MEDS: INSULIN LISPRO 100 UNIT/ML 3ML VIAL SUBCUT ×2 (09:36→12:42)
[2022-08-29] MEDS: FUROSEMIDE 40 MG TABLET PO (09:37)
[2022-08-29] MEDS: carvediloL 12.5 MG TABLET 25 MG PO (09:37)
--- NOTE | 2022-08-29 13:55 | CM.DPNOTE ---
Initial DCP Assessment Note Pt is a 77 yo male, staying at his family's home in [place] ,admitted for atrial fibrillation with RVR, shortness of breath associated with COVID-19 Patient has improved and is discharged home with family today PCP: Cedrick Gregorio Payer: [employer]/ [employer] Placed call into patient's room; patient sounds agitated states he is concerned that he cannot discharge home w/his family that also has COVID Educated patient on COVID precautions, explained people who are COVID+ can test + for up to 90 days (also explained by CLAUDINE Matos). Validated patient's many concerns and explained he has improved greatly and has been medically cleared and discharged today. Patient stated understanding and planned to call a family member to transport him after RN completed DC instructions No needs identified from this AIRPORT [employer]ENT. Home w/family WILL Menjivar
--- NOTE | 2022-08-29 17:59 | PM.DS.1 ---
History of Present Illness History of Present Illness Date Patient Seen: 08/26/22 Time Patient Seen: 23:00 Chief complaint: sob/sores on both legs Narrative: Per admitting provider: Logan Denton is a 77-year-old male with a history of atrial fibrillation, diabetes, congestive heart failure, COPD on home O2, coronary artery disease, presented to the ED on 08/26 with increased shortness of breath.? He states was driving to [place] and overnight it in [place] staying in a hotel room. He he stated he passed out in his hotel room and felt that he was ?impaled? against something on the bed frame. He passed out several times when approximately 7:00 a.m. he heard somebody walking down the [address] with his dog and started to yell. The person asked him if he needed to have the paramedics called and he said that yes he did need help and they were led into the room. He was admitted to [facility] [place] for 4 days for atrial fibrillation with RVR. I did review faxed notes from them and it appears that aside from his regular medications they also discharge him on oral digoxin. Per the hospital notes they stated he was supratherapeutic at an INR of 3.0 and it sounds like they may have withheld his warfarin because today he is actually subtherapeutic.Once discharged from the hospital he then drove a few days back to [facility] and arrived last night.? He has had ongoing shortness of breath mostly with exertion.? He feels like his AFib might be out of control again.? He says he was not in sinus rhythm when he was discharged but he used to have paroxysmal atrial fibrillation.? He occasionally has chest discomfort but is not really consistent.? He currently denies any chest palpitations.? He had COVID on August 07 and prior to leaving for [place] his PCP told him that he could come out of quarantine. However when he presented to the hospital in [place], he was positive for COVID and is positive currently. He is chronic ongoing lower extremity wounds.? He is [facility] by [facility].? They are weeping more and he states had an appointment to see them but never made it.? He denies any fever chills or cough. States his diabetes is under good control with an A1c of 6.2, denies any nausea vomiting, abdominal pain, dysuria but does have bouts of diarrhea altering needing with constipation which appears to be chronic. He does complain of numbing and tingling of his upper and lower extremities particularly the tips of his fingers and does endorse having a nonproductive cough. In the ED he was administered diltiazem, 40 mg of IV Lasix, he was initiated on IV steroid of Solu-Medrol 125 mg and was given a 1 time dose of metoprolol 25 mg. Chest x-ray was negative, due to shortness of breath CTA was ordered and reported a mild to moderate right pleural effusion with associated right basilar atelectasis but no pulmonary embolism. He is afebrile, blood pressure 131/88 his heart rate is 128 respiratory rate 22 oxygen saturation of 95% on room air he weighs 136 kg with a BMI of 38.1. He is mildly anemic with a hemoglobin and hematocrit of 9.9 and 31.4, his INR is 1.8 which is the therapeutic for him, potassium 5.2 creatinine 1.33 BUN 32 with a EGFR 56 his A1c is 7.3 ALT is 188 pro BNP is 4410 his troponin is within normal limits viral flu panel is negative but his COVID-19 PCR remains positive. FH: Documented below. Discharge Providers Provider Date of admission: 08/26/22 23:01 Discharge Date: 08/29/22 Primary care physician: Cedrick Gregorio MD Discharge provider: Carlos Queen MD Summary Hospital Course Discharge Diagnosis: 1. Atrial fibrillation with RVR 2. COPD chronic 3. Type 2 Diabetes 4. Hypertension 5. COVID infection 6. CKD stage 3 Hospital Course: Mr. Denton was admitted with atrial fibrillation with RVR. He ultimately need escalating doses o his rate control medications to improve his heart rate. He was discharged on coreg 25mg BID, digoxin 0.125mg daily, diltiazem 360mg daily. He also was discharged on lasix 40mg daily. This is slightly different than what is listed on medication reconciliation but the above medications were discussed with his outpatient pharmacy and are what he was well controlled at in the hospital. He was encouraged to follow up with his PCP within one week and should have digoxin levels monitored. Exam Vital Signs (past 8 hours): Oxygen Delivery Method Room Air Oxygen Flow Rate 0 Narrative Exam Narrative: Gen: no acute distress Resp:clear bilaterally but diminished CV: Tachy and irregularly irregular, no murmur or rubs Abd: obese, soft, non-tender, normoactive BTs Extremities: trace bilateral lower extremity non-pitting edema with venous stasis and chronic venous stasis ulcerations R > L, no erythema or induration Objective Labs Result Diagrams: 08/29/22 06:45 08/29/22 06:45 [facility] Medical History Arthritis Asthma Benign tumor of adrenal gland Bilateral lower extremity edema BPH w urinary obs/LUTS Chronic pain CKD (chronic kidney disease), stage III COPD (chronic obstructive pulmonary disease) Heart murmur HTN (hypertension) Hyperlipidemia Lymphadenopathy Myocardial infarction Non-sustained ventricular tachycardia ALDAIR on CPAP Osteoarthritis Paroxysmal A-fib Pneumonia RBBB (right bundle branch block) Renal artery stenosis Renal calculus Status post placement of implantable loop recorder (~11/2016) Type 2 diabetes mellitus Surgical History History of arthroplasty of left knee (~2014) History of carpal tunnel release of both wrists (~2004) History of hemiarthroplasty of left shoulder (~2004) Hx of arthroscopy of left knee (~2008) Hx of cholecystectomy Hx of laminectomy Hx of shoulder surgery (~2007) S/P foot surgery, left Family History (Updated 08/27/22 @ 03:03 by SIM De Souza) Mother Myocardial infarction Father CVA (cerebral vascular accident) Myocardial infarction Sister Atrial fibrillation, chronic Status cardiac pacemaker Social History household members: significant other Smoking Status: Former smoker alcohol intake: current Discharge Plan Discharge Plan Patient Disposition: Home Provider Discharge Comment: Mr. Denton came in to the hospital with a fast heart rate. He needed new medications to control his heart rate. Some of his medications were stopped because he was started on these new medications. His heart rate was much improved with these medications. He should follow up closely with his PCP to make sure he does well on these medicines. Discharge orders & Medications Prescriptions: New furosemide 40 mg Tablet 40 mg PO DAILY Qty: 30 0RF carvedilol [Coreg] 12.5 mg Tablet 25 mg PO BID Qty: 60 0RF digoxin 125 mcg (0.125 mg) Tablet 0.25 mg PO DAILY@1700 Qty: 30 0RF diltiazem HCl 360 mg capsule,extended release 24 hr 360 mg PO DAILY Qty: 30 0RF Continued terazosin 5 mg Capsule 5 mg PO DAILY Novolin 70/30 U-100 Insulin 100 unit/mL (70-30) Suspension 22 unit SUBCUT BID Label Comments: took 11 units this am clonidine HCl 0.2 mg Tablet 0.2 mg PO BID Label Comments: last took about four month s ago warfarin 5 mg Tablet 5 mg PO QPM multivitamin Capsule 1 cap PO DAILY cholecalciferol (vitamin D3) [Vitamin D3] 1,000 unit Tablet 1,000 unit PO BID magnesium oxide 400 mg Capsule 400 mg PO BID acetaminophen 325 mg Tablet 975 mg PO TID Qty: 0 0RF oxycodone 5 mg Tablet 5 mg PO Q3HR PRN (Reason: Pain, Moderate (4-6)) Qty: 0 0RF atorvastatin 40 mg tablet 40 mg PO BEDTIME Label Comments: TAKE 1 TABLET BY MOUTH ONCE DAILY Discontinued carvedilol 25 mg Tablet 12.5 mg PO BID spironolactone 25 mg Tablet 25 mg PO DAILY Follow up/Referrals: Cedrick Gregorio MD [Primary Care Provider] - 1 Week Diet/Activity/Treatments Diet: Low-sodium Visit Report/Discharge Packet Instructions: DI for Heart Failure, DI for Atrial Fibrillation, DI for Diabetes Type 2, DI for Shortness of Breath, How to Prevent Falls, Digoxin, Furosemide, Carvedilol, DI for COVID-19 (Suspected or Confirmed ) Discharge Data Primary Care Provider: Cedrick Gregorio Quality VTE Deep Vein Thrombosis/Pulmonary Embolism Present on Admission: No
== END 2022-08-29 15:15 | disposition home or self-care (01) | DRG 308 ==
LOC: ED 22:03 → AC 23:02
PROVIDERS: Emergency Medicine; Internal Medicine; Admitting Provider Nurse Practitioner Family; Emergency Provider Emergency Medicine; PCP Internal Medicine; Referring Provider Emergency Medicine; Visit Provider Nurse Practitioner Family
DX: I48.91 Unspecified atrial fibrillation (principal); U07.1 COVID-19; J44.1 Chronic obstructive pulmonary disease with (acute) exacerbation; J44.9 Chronic obstructive pulmonary disease, unspecified; R79.1 Abnormal coagulation profile; E11.65 Type 2 diabetes mellitus with hyperglycemia; E11.22 Type 2 diabetes mellitus with diabetic chronic kidney disease; I12.9 Hypertensive chronic kidney disease with stage 1 through stage 4 chronic kidney disease, or unspecified chronic kidney disease; N18.30 Chronic kidney disease, stage 3 unspecified; E78.5 Hyperlipidemia, unspecified; N40.0 Benign prostatic hyperplasia without lower urinary tract symptoms; Z87.891 Personal history of nicotine dependence; Z79.4 Long term (current) use of insulin; Z99.81 Dependence on supplemental oxygen; Z79.01 Long term (current) use of anticoagulants
CPT/HCPCS: 0241U; 36415; 71045; 71275; 80053; 80162; 82550; 82962; 83036; 83690; 83735; 83880; 84443; 84484; 85025; 85610; 85730; 93005; 96374; 96375; 99285; J1160; J1815; J1940; J2930; Q9967

== ENCOUNTER → 2022-11-12 07:44 | Outpatient (CLI) | payer MEDICARE, OTHER, SELFPAY ==
[2022-08-27 13:14] VITALS: BMI 40.6
--- NOTE | 2022-11-12 | DI.ECHO.S_ITS ---
[facility] +---------+ : : [address] : : : : [id number] : : : : Phone: [phone]+ Echocardiogram Report + + :Name: RADHA ECHEVERRIA Study Date: 11/12/2022 Height: 73 in : :[facility] ReadingLocation: Weight: 329 lb : : Gender: Male BSA: 2.7 m2 : :: 1945 Age: 77 yrs BP: 134/100 mmHg: :Reason For Study: Status post TAVR : :Ordering Physician: Brianda : :Quique Huntley Performed By: Nicole Cates : :Referring: BRIANDA COLLIER : + + Interpretation Summary This is a technically difficult study that could not be enhanced with Definity echo contrast due to lack of IV access. Endocardium is not well seen on any of the views. EKG tracing is not available on any of the views. Thus can not commen on wall motion nor LV systolic function nor heart rate. There is mild concentric LVH. Severe left atrial enlargement. Neither RV nor RA are well seen. In terms of valvular heart disease, valves are not well seen. There is at least moderate mitral annular calcification. 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 Leaflets are not well seen. Moderate tricuspid regurgitation with estimated PA systolic pressure of 57 mm hg assuming RA pressure of 20 mm Hg. Procedure: A two-dimensional transthoracic echocardiogram with color flow and Doppler was performed. The study quality was technically difficult. Patient scanned in sitting position due to shortness of breath. The patient was in atrial fibrillation with rapid ventricular response during the exam with a heart rate exceeding 100 bpm. The heart rate ranged between 118-165 bpm during the study. Left Ventricle: The left ventricle is normal in size. There is mild-moderate concentric left ventricular hypertrophy. Diastolic function could not be accurately assessed due to atrial fibrillation. Right Ventricle: The right ventricle is borderline dilated. Atria: The left atrium is severely dilated. Right atrium not well visualized secondary to technical limitations. Mitral Valve: The mitral valve leaflets are heavily calcified. Not well visualized. There is trace mitral regurgitation. Aortic Valve: The aortic valve is not well visualized. There is a prosthetic aortic valve. Tricuspid Valve: The tricuspid valve is not well visualized. There is moderate tricuspid regurgitation. Pulmonic Valve: The pulmonic valve is not well visualized. Great Vessels: The ascending aorta could not be visualized. The pulmonary is not well visualized. The IVC is dilated (diameter is greater than 2.1 cm) and it collapses less than 50% with a sniff. This suggests a high right atrial pressure of 15 mm Hg. Pericardium/ Pleura There is a small pericardial effusion noted. There is no pleural effusion. MMode/2D Measurements & Calculations LVIDd: 5.2 cm LVOT diam: 2.1 cm LVIDs: 4.4 cm FS: 15.4 % EPSS: 0.60 cm IVSd: 1.3 cm LVPWd: 1.3 cm LV hamm. diameter/BSA (cm/m^2): 2.0 LV sys. diameter/BSA (cm/m^2): 1.7 LA dimension: 5.2 cm IVC diam: 3.1 cm Doppler Measurements & Calculations Ao V2 max: 107.0 cm/sec LVOT Max Robin: 72.4 cm/sec Ao V2 mean: 77.1 cm/sec LV V1 max P.1 mmHg Ao max P.0 mmHg LV V1 VTI: 11.5 cm Ao mean P.3 mmHg KADIE(I,D): 2.4 cm2 Ao V2 VTI: 16.9 cm KADIE(V,D): 2.3 cm2 sev ratio: 0.68 KADIE indexed to BSA (cm^2/m^2): 0.89 MV E max robin: 161.3 cm/sec TR max robin: 305.0 cm/sec Med Peak E' Robin: 6.2 cm/sec TR max P.2 mmHg E/E' med: 25.9 PA V2 max: 66.4 cm/sec MV dec time: 0.15 sec PA V2 mean: 50.2 cm/sec MVA(VTI): 1.2 cm2 PA mean P.0 mmHg MV V2 mean: 127.7 cm/sec SV(LVOT): 39.8 ml MV mean P.7 mmHg MV V2 VTI: 33.1 cm AV VR_phl: 0.68 MV P1/2t-pr_phl: 43.7 msec KADIE(VTI)/BSA_phl: 0.88 Electronically signed by: Brianda Collier M.D. on Reading Physician:11/12/2022 10:54 AM
== END ==
PROVIDERS: PCP Internal Medicine; Referring Provider Internal Medicine; Visit Provider Internal Medicine
DX: I31.39 Other pericardial effusion (noninflammatory) (principal); I07.1 Rheumatic tricuspid insufficiency; Z95.2 Presence of prosthetic heart valve
CPT/HCPCS: 93306